=== PATIENT | male | born 1930 | race Caucasian/White ===

== ENCOUNTER 2016-06-25 10:19 | Observation (INO) | payer MEDICARE ==
[2016-06-25] MEDS ORDERED: Lactated Ringers 1,000 ML IV ONE (13:43)
--- NOTE | 2016-06-25 14:15 | XRAY ---
Indication: Acute mental status change. Comparison: June 21, 2016 Portable chest demonstrates stable left base infiltrate/atelectasis with right base clearing. Remaining lungs clear. Heart is not enlarged. No new cardiopulmonary abnormalities.
[2016-06-25 16:41] LABS: Collection Type VOID
[2016-06-25 16:42] LABS: ADD URINE CULTURE? YES (NO); Bacteria MODERATE /HPF (NEGATIVE); COMPLETE URINE MICROSCOPIC? YES; Epithelial Cells FEW /HPF (FEW); Hyaline Casts 0-2 /LPF (0-2); WBC 0-2 /HPF (0-5)
[2016-06-25] MEDS ORDERED: DULCOLAX 5 MG PO PRN (17:19)
[2016-06-25] MEDS ORDERED: TYLENOL 325 MG PO PRN (17:19)
--- NOTE | 2016-06-25 17:32 | PCM.HP ---
History of Present Illness - Chief Complaint Chief Complaint: ACUTE KIDNEY INJURY Date: 06/25/16 History of Present Illness: is a 85 year old male. who suffers from Parkinsonism and Dementia as well as prostate cancer and recurrent falls, who was recently diagnosed with a new stroke and discharged to [facility] from [place]. He was placed on thickened liquid diet due to aspiration. He developed respiratory symptoms and found to have evidence of pneumonia on chest x-ray started on Levaquin but was very fatigued and not eating or drinking really this week. He was more somnolent today not wanting to drink repeat bmp showed hypernatremia and acute kidney injury and he was transferred to [place] for direct admission for hydration. His daughter is his poa and was here she requested hospital stay for rehydration rather then at the assisted. - Review of Systems Constitutional: Other (unable to obtain secondary to mental status. ) Medications & Allergies Home Medications: Home Medication List Aspirin [Aspirin EC] 81 mg PO DAILY 06/03/16 [History Confirmed 06/25/16] Carbidopa/Levodopa [Carbidopa-Levo 25-100 Tab] 1 each PO QID 06/03/16 [History Confirmed 06/25/16] Clopidogrel Bisulfate [Clopidogrel] 75 mg PO DAILY 06/03/16 [History Confirmed 06/25/16] Donepezil HCl 10 mg PO DAILY 06/03/16 [History Confirmed 06/25/16] Escitalopram Oxalate 10 mg PO DAILY 06/03/16 [History Confirmed 06/25/16] Famotidine 40 mg PO HS 06/03/16 [History Confirmed 06/25/16] Memantine HCl [Namenda Xr] 28 mg PO DAILY 06/03/16 [History Confirmed 06/25/16] Metoprolol Succinate 50 mg PO DAILY 06/03/16 [History Confirmed 06/25/16] PANTOPRAZOLE 40 mg Tablet [Protonix 40MG Tablet] 40 mg PO DAILY 06/03/16 [ History Confirmed 06/25/16] Solifenacin Succinate [Vesicare] 10 mg PO DAILY 06/03/16 [History Confirmed ] Tamsulosin HCl 0.4 mg PO HS 06/03/16 [History Confirmed 06/25/16] Valsartan [Diovan] 320 mg PO DAILY 06/03/16 [History Confirmed 06/25/16] Acetaminophen 325 mg [Tylenol 325 mg] 650 mg PO Q4HPRN PRN 06/25/16 [ History Confirmed 06/25/16] Atorvastatin Calcium 40 mg PO HS 06/25/16 [History Confirmed 06/25/16] Bisacodyl 5 mg [Dulcolax 5 mg] 10 mg PO HSPRN PRN 06/25/16 [History Confirmed 06/25/16] Clonidine HCl Tts-1 Patch [Catapres-TTS 1 PATCH] 0.1 mg TOP DAILY [History Confirmed 06/25/16] Levetiracetam 250 MG [Keppra 250 MG] 250 mg PO BID 06/25/16 [History Confirmed 06/25/16] Levofloxacin [Levaquin] 500 mg PO DAILY 06/25/16 [History Confirmed 06/25/16] Mag Hydrox/Al Hydrox/Simeth [Mylanta Maximum Strength Liq] 2 ml PO Q4HPRN PRN [History Confirmed 06/25/16] Magnesium Hydroxide 30 ml [Milk of Magnesia 30 ml] 30 ml PO DAILY PRN PRN 06/25/16 [History Confirmed 06/25/16] Allergies/Adverse Reactions: Allergies Allergy/AdvReac Type Severity Reaction Status Date / Time Penicillins Allergy Verified 06/03/16 22:02 ampicillin AdvReac Mild Vomiting Verified 12/15/15 13:41 - Past Medical History Past Medical History: Yes Neurological History: Alzheimer's Disease, Stroke, Other Cardiac History: Arrhythmia, High Cholesterol, Hypertension Respiratory History: COPD Musculoskelatal History: Arthritis GI Medical History: No Pertinent History History: Other Pyscho-Social History: Depression Male Reproductive Disorders: Prostate Cancer, Prostate Problems Comment: Parkinsons, BPH - Past Surgical History Past Surgical History: Yes Neuro Surgical History: No Pertinent History Cardiac History: No Pertinent History Respiratory Surgery: No Pertinent History GI Surgical History: No Pertinent History Genitourinary Surgical Hx: No Pertinent History Musculskeletal Surgical Hx: Orthopedic Surgery Male Surgical History: No Pertinent History Other Surgical History: back surgery, knee surgery - Social History Smoking Status: Never smoker Exposure to second hand smoke: No Alcohol: None Drug Use: none - Physical Exam Vital Signs: Vital Signs - 24 hr Temp Pulse Resp BP Pulse Ox 06/25/16 16:05 97.7 F 72 20 138/90 93 L 06/25/16 14:09 97.8 F 69 20 135/63 94 L 06/25/16 13:41 97.8 F 69 20 135/63 94 L General Appearance: no apparent distress, other (drowsy falls asleep while talking to his daughter) Neurologic Exam: No oriented x 3 Eye Exam: pale conjunctivae, No scleral icterus Ears, Nose, Throat Exam: dry mucous membranes Neck Exam: non-tender, supple Respiratory Exam: crackles/rales (bibasilar), No rhonchi, No wheezing Cardiovascular Exam: regular rate/rhythm, murmur Gastrointestinal/Abdomen Exam: soft, normal bowel sounds, No tenderness, No distention Extremity Exam: No calf tenderness, No pedal edema Skin Exam: warm, dry, No rash Results - Labs Lab/Micro Results: Lab Results-Last 24 Hours 06/25/16 Range/Units 16:27 Ur Collection Type VOID Urine Color YELLOW (YELLOW) Urine Appearance SLIGHTLY HAZY (CLEAR) Urine pH 6.0 (5-6) Ur Specific [place] 1.025 (1.005-1.025) Urine Protein NEGATIVE (Negative) Urine Glucose (UA) NEGATIVE (NEGATIVE) mg/dL Urine Ketones NEGATIVE (NEGATIVE) Urine Nitrite NEGATIVE (NEGATIVE) Urine Bilirubin NEGATIVE (NEGATIVE) Urine Urobilinogen 1 (0-1) mg/dL Urine WBC (Auto) NEGATIVE (NEGATIVE) Urine RBC (Auto) SMALL (0-5) Shiva/ul Urine Microscopic RBC 10-15 (0-2) /HPF Urine Microscopic WBC 0-2 (0-5) /HPF Ur Epithelial Cells FEW (FEW) /HPF Urine Bacteria MODERATE (NEGATIVE) /HPF Hyaline Casts 0-2 (0-2) /LPF Specimen Received 06/25/16 1631 - Radiology Impressions Radiology Exams & Impressions: Radiology Procedures Category Date Time Status CHEST 1 VIEW (PORTABLE) Routine Exams 06/25/16 13:43 Completed Assessment/Plan (1) Pneumonia Current Visit: Yes Status: Acute Qualifiers: Laterality: left Lung location: lower lobe of lung Assessment & Plan: improving on the levaquin started earlier this week will continue at reduced renal dosing rehydrate gentle with the acute kidney injury his bumex has been held this week continue to hold hold the valsartan as well getting 1 L of LR over 4 horus then 1/2 NS at 100 mL/h encourage po intake monitor repeat labs in am. plan for back to [facility] when labs improving and mental status a little more alert he has severe dementia at baseline but is usually very alert and talkative. Code(s): J18.9 - PNEUMONIA, UNSPECIFIED ORGANISM (2) Acute kidney injury Current Visit: Yes Status: Acute Code(s): N17.9 - ACUTE KIDNEY FAILURE, UNSPECIFIED (3) Dehydration Current Visit: Yes Status: Acute Code(s): E86.0 - DEHYDRATION (4) Parkinson disease Current Visit: Yes Status: Chronic Code(s): G20 - PARKINSON'S DISEASE (5) Dementia Current Visit: Yes Status: Chronic Qualifiers: Dementia type: Parkinson's disease Dementia behavioral disturbance: without behavioral disturbance Qualified Code(s): G20 - Parkinson's disease; F02.80 - Dementia in other diseases classified elsewhere without behavioral disturbance Code(s): F03.90 - UNSPECIFIED DEMENTIA WITHOUT BEHAVIORAL DISTURBANCE (6) Stroke Current Visit: Yes Status: Chronic Code(s): I63.9 - CEREBRAL INFARCTION, UNSPECIFIED (7) Dysphagia Current Visit: Yes Status: Chronic Code(s): R13.10 - DYSPHAGIA, UNSPECIFIED (8) COPD (chronic obstructive pulmonary disease) Current Visit: Yes Status: Chronic (9) Hypertension Current Visit: Yes Status: Acute Code(s): I10 - ESSENTIAL (PRIMARY) HYPERTENSION (10) Hx of prostatic malignancy Current Visit: Yes Status: Chronic Assessment & Plan: on injections last was this week Code(s): Z85.46 - PERSONAL HISTORY OF MALIGNANT NEOPLASM OF PROSTATE
[2016-06-25] MEDS: Dextrose 5% -0.45 NaCl 1000 ML 1,000 ML IV SCH (18:05)
[2016-06-25] MEDS: Aricept 10 MG PO SCH (20:32)
[2016-06-25] MEDS ORDERED: LIPITOR 40MG PO SCH (22:00)
[2016-06-25] MEDS ORDERED: NON-FORMULARY ITEM (Famotidine [Famotidine] 40 MG) PO SCH (22:00)
[2016-06-25] MEDS: Pepcid 20 MG PO SCH (22:37)
[2016-06-25] MEDS: Sinemet 25/100 MG PO SCH (22:37)
[2016-06-25] MEDS: Keppra 250 MG PO SCH (22:37)
[2016-06-25] MEDS: ZOCOR 20MG PO SCH (22:37)
[2016-06-25] MEDS: Flomax 0.4 MG PO SCH (22:37)
[2016-06-26] MEDS: Dextrose 5% -0.45 NaCl 1000 ML 1,000 ML IV SCH ×3 (04:00→23:00)
[2016-06-26 06:28] LABS: Mean Cell Volume 100.9 fl (78-100); Mean Corpuscular Hemoglobin 30.5 pg (26-32); Mean Platelet Volume 11.7 fl (6-9.5); Platelet Count 353 K/mm3 (150-450); Red Blood Count 3.24 M/mm3 (4.1-5.6); Red Cell Distribution Width 13.1 % (11.5-14.0); White Blood Count 6.9 K/mm3 (4.0-10.5)
[2016-06-26 06:29] LABS: ANION GAP 3.7 MEQ/L (5-15); Carbon Dioxide 28.6 mEq/L (21-32)
--- NOTE | 2016-06-26 09:02 | PCM.NOTE ---
Date and Time: 06/26/16 0900 Subjective Assessment: patient with no fever overnight, bun/cr has improved some. he is still very groggy, responds briefly to painful stimulus Objective Exam General Appearance: no apparent distress, lethargy Respiratory Exam: crackles/rales Cardiovascular Exam: regular rate/rhythm, normal heart sounds Gastrointestinal/Abdomen Exam: soft, No tenderness, No mass Extremity Exam: normal inspection, normal range of motion OBJECTIVE DATA Vital Signs: Vital Signs - 24 hr Temp Pulse Resp BP Pulse Ox 06/26/16 08:00 97.8 F 60 18 178/75 95 06/26/16 04:00 98 F 61 17 168/70 94 L 06/26/16 00:00 98 F 56 L 18 171/75 93 L 06/25/16 20:00 97.1 F 57 L 20 172/82 96 06/25/16 16:05 97.7 F 72 20 138/90 93 L 06/25/16 14:09 97.8 F 69 20 135/63 94 L 06/25/16 13:41 97.8 F 69 20 135/63 94 L Pain Assessment - Last Documented Pain Intensity 0 Pain Scale Used 0-10 [facility] Scale,[facility] Intake and Output: Intake & Output 06/23/16 06/24/16 06/25/16 06/26/16 11:59 11:59 11:59 11:59 Intake Total 2536 Output Total 1150 Balance 1386 Weight 80.377 kg Lab Results: Lab Results-Last 24 Hours 06/25/16 06/26/16 06/26/16 Range/Units 16:27 05:56 05:56 WBC 6.9 (4.0-10.5) K/mm3 RBC 3.24 L (4.1-5.6) M/mm3 Hgb 9.9 L (12.5-18.0) gm/dl Hct 32.7 L (42-50) % MCV 100.9 H (78-100) fl MCH 30.5 (26-32) pg MCHC 30.3 L (32-36) g/dl RDW 13.1 (11.5-14.0) % Plt Count 353 (150-450) K/mm3 MPV 11.7 H (6-9.5) fl Sodium (136-145) mEq/L Potassium (3.5-5.1) mEq/L Chloride (98-107) mEq/L Carbon Dioxide (21-32) mEq/L Anion Gap (5-15) MEQ/L BUN (9-20) mg/dL Creatinine (0.55-1.30) mg/dl Estimated GFR ML/MIN Glucose (70-110) MG/DL Hemoglobin A1c 7.8 H (4.5-6.2) Calcium (8.5-10.1) mg/dL Ur Collection Type VOID Urine Color YELLOW (YELLOW) Urine Appearance SLIGHTLY HAZY (CLEAR) Urine pH 6.0 (5-6) Ur Specific [place] 1.025 (1.005-1.025) Urine Protein NEGATIVE (Negative) Urine Glucose (UA) NEGATIVE (NEGATIVE) mg/dL Urine Ketones NEGATIVE (NEGATIVE) Urine Nitrite NEGATIVE (NEGATIVE) Urine Bilirubin NEGATIVE (NEGATIVE) Urine Urobilinogen 1 (0-1) mg/dL Urine WBC (Auto) NEGATIVE (NEGATIVE) Urine RBC (Auto) SMALL (0-5) Shiva/ul Urine Microscopic RBC 10-15 (0-2) /HPF Urine Microscopic WBC 0-2 (0-5) /HPF Ur Epithelial Cells FEW (FEW) /HPF Urine Bacteria MODERATE (NEGATIVE) /HPF Hyaline Casts 0-2 (0-2) /LPF Specimen Received 06/25/16 1631 06/26/16 Range/Units 05:56 WBC (4.0-10.5) K/mm3 RBC (4.1-5.6) M/mm3 Hgb (12.5-18.0) gm/dl Hct (42-50) % MCV (78-100) fl MCH (26-32) pg MCHC (32-36) g/dl RDW (11.5-14.0) % Plt Count (150-450) K/mm3 MPV (6-9.5) fl Sodium 137 (136-145) mEq/L Potassium 4.0 (3.5-5.1) mEq/L Chloride 109 H (98-107) mEq/L Carbon Dioxide 28.6 (21-32) mEq/L Anion Gap 3.7 L (5-15) MEQ/L BUN 28 H (9-20) mg/dL Creatinine 1.45 H (0.55-1.30) mg/dl Estimated GFR 49 ML/MIN Glucose 269 H (70-110) MG/DL Hemoglobin A1c (4.5-6.2) Calcium 8.7 (8.5-10.1) mg/dL Ur Collection Type Urine Color (YELLOW) Urine Appearance (CLEAR) Urine pH (5-6) Ur Specific [place] (1.005-1.025) Urine Protein (Negative) Urine Glucose (UA) (NEGATIVE) mg/dL Urine Ketones (NEGATIVE) Urine Nitrite (NEGATIVE) Urine Bilirubin (NEGATIVE) Urine Urobilinogen (0-1) mg/dL Urine WBC (Auto) (NEGATIVE) Urine RBC (Auto) (0-5) Shiva/ul Urine Microscopic RBC (0-2) /HPF Urine Microscopic WBC (0-5) /HPF Ur Epithelial Cells (FEW) /HPF Urine Bacteria (NEGATIVE) /HPF Hyaline Casts (0-2) /LPF Specimen Received Radiology Exams: Radiology Procedures Category Date Time Status CHEST 1 VIEW (PORTABLE) Routine Exams 06/25/16 13:43 Completed Multi-Disciplinary Progress Notes: Multi-Disciplinary Progress Notes 06/25/16 15:22 Case Management Note by Janki Berumen DISCHARGE PLAN REVIEWED, FROM [facility] PLAN FOR PT TO RETURN TO [facility] ON DISCHARGE. NO ADDNL NEEDS AT PRESENT. WILL CONTINUE TO FOLLOW FOR ALL DC NEEDS. Initialized on 06/25/16 15:22 - END OF NOTE Assessment/Plan (1) Pneumonia Current Visit: Yes Status: Acute Qualifiers: Laterality: left Lung location: lower lobe of lung Assessment & Plan: continue levaquin Code(s): J18.9 - PNEUMONIA, UNSPECIFIED ORGANISM (2) Acute kidney injury Current Visit: Yes Status: Acute Assessment & Plan: improving slightly, will repeat in am, hopefully will become more alert and can return to [facility] soon Code(s): N17.9 - ACUTE KIDNEY FAILURE, UNSPECIFIED (3) Dehydration Current Visit: Yes Status: Acute Code(s): E86.0 - DEHYDRATION
[2016-06-26] MEDS: PLAVIX 75 MG Tablet PO SCH (09:10)
[2016-06-26] MEDS: Lexapro 10 MG PO SCH (09:10)
[2016-06-26] MEDS: Sinemet 25/100 MG PO SCH ×4 (09:10→22:44)
[2016-06-26] MEDS: ECOTRIN 81 MG PO SCH (09:11)
[2016-06-26] MEDS: Toprol Xl 50 MG PO SCH (09:11)
[2016-06-26] MEDS: Protonix 40MG Tablet PO SCH (09:11)
[2016-06-26] MEDS: Keppra 250 MG PO SCH ×2 (09:11→22:44)
[2016-06-26] MEDS: Ditropan 5 MG PO SCH ×2 (09:11→22:43)
[2016-06-26] MEDS: Namenda 5 MG PO SCH ×2 (09:11→22:44)
[2016-06-26] MEDS: Levaquin 500 MG Tablet PO SCH (09:12)
[2016-06-26] MEDS ORDERED: Levaquin 500 MG Tablet PO SCH (10:00)
[2016-06-26] MEDS ORDERED: MEMANTINE HCL 28 MG PO SCH (10:00)
[2016-06-26] MEDS: NovoLOG Insulin SQ PRN ×2 (12:49→17:05)
[2016-06-26] MEDS: Aricept 10 MG PO SCH (20:17)
[2016-06-26] MEDS: Pepcid 20 MG PO SCH (22:43)
[2016-06-26] MEDS: ZOCOR 20MG PO SCH (22:44)
[2016-06-26] MEDS: Flomax 0.4 MG PO SCH (22:44)
[2016-06-27 05:56] LABS: BASOPHIL % 0.1 % (0.0-0.4); Eosinophil % 2.6 % (0.00-5.0); Granulocytes % 67.5 % (36.0-66.0); Mean Cell Volume 99.4 fl (78-100); Mean Corpuscular Hemoglobin 30.6 pg (26-32); Mean Platelet Volume 11.7 fl (6-9.5); Monocytes % 7.8 % (0.0-12.0); Platelet Count 310 K/mm3 (150-450); Red Blood Count 3.33 M/mm3 (4.1-5.6); Red Cell Distribution Width 12.7 % (11.5-14.0); White Blood Count 6.9 K/mm3 (4.0-10.5)
[2016-06-27 06:14] LABS: ALBUMIN 1.9 g/dL (3.4-5.0); ANION GAP 10.3 MEQ/L (5-15); BILIRUBIN,TOTAL 0.3 mg/dL (0.2-1.0); Carbon Dioxide 27.7 mEq/L (21-32); Total Protein 5.8 gm/dL (6.4-8.2)
--- NOTE | 2016-06-27 06:32 | PCM.DS ---
Discharge Summary Date of Admission: 06/25/16 13:31 Admitting Physician: KAYLENE NASCIMENTO Primary Care Provider: KAYLENE NASCIMENTO Allergies Allergies Penicillins Allergy (Verified 06/03/16 22:02) ampicillin Adverse Reaction (Mild, Verified 12/15/15 13:41) Vomiting Hospital Summary - Hospital Course Hospital Course: patient doing much better after hydration, he is alert, confused but this appears to be his baseline. he is cooperative and looks good today - Vitals & Intake/Output Vital Signs: Vital Signs Temperature 98.1 F 06/27/16 04:00 Pulse Rate 53 L 06/27/16 04:00 Respiratory Rate 16 06/27/16 04:00 Blood Pressure 161/77 06/27/16 04:00 O2 Sat by Pulse Oximetry 95 06/27/16 04:00 Intake & Output: Intake & Output 06/24/16 06/25/16 06/26/16 06/27/16 11:59 11:59 11:59 11:59 Intake Total 2536 3231 Output Total 1150 1650 Balance 1386 1581 Weight 80.377 kg - Lab Result Diagrams: 06/27/16 04:30 06/27/16 04:30 Lab Results-Last 24 Hrs: Accuchecks Date 06/27/16 Date 06/26/16 Time 22:00 Time 16:30 Accucheck Value: 151 Accucheck Value: 216 Lab Results-Last 24 Hours 06/26/16 06/26/16 06/26/16 Range/Units 05:56 05:56 05:56 WBC 6.9 (4.0-10.5) K/mm3 RBC 3.24 L (4.1-5.6) M/mm3 Hgb 9.9 L (12.5-18.0) gm/dl Hct 32.7 L (42-50) % MCV 100.9 H (78-100) fl MCH 30.5 (26-32) pg MCHC 30.3 L (32-36) g/dl RDW 13.1 (11.5-14.0) % Plt Count 353 (150-450) K/mm3 MPV 11.7 H (6-9.5) fl Gran % (36.0-66.0) % Lymphocytes % (24.0-44.0) % Monocytes % (0.0-12.0) % Eosinophils % (0.00-5.0) % Basophils % (0.0-0.4) % Basophils # (0-0.4) Sodium 137 (136-145) mEq/L Potassium 4.0 (3.5-5.1) mEq/L Chloride 109 H (98-107) mEq/L Carbon Dioxide 28.6 (21-32) mEq/L Anion Gap 3.7 L (5-15) MEQ/L BUN 28 H (9-20) mg/dL Creatinine 1.45 H (0.55-1.30) mg/dl Estimated GFR 49 ML/MIN Glucose 269 H (70-110) MG/DL Hemoglobin A1c 7.8 H (4.5-6.2) Calcium 8.7 (8.5-10.1) mg/dL Total Bilirubin (0.2-1.0) mg/dL AST (15-37) U/L ALT (12-78) U/L Alkaline Phosphatase (46-116) U/L Serum Total Protein (6.4-8.2) gm/dL Albumin (3.4-5.0) g/dL 06/27/16 06/27/16 Range/Units 04:30 04:30 WBC 6.9 (4.0-10.5) K/mm3 RBC 3.33 L (4.1-5.6) M/mm3 Hgb 10.2 L (12.5-18.0) gm/dl Hct 33.1 L (42-50) % MCV 99.4 (78-100) fl MCH 30.6 (26-32) pg MCHC 30.8 L (32-36) g/dl RDW 12.7 (11.5-14.0) % Plt Count 310 (150-450) K/mm3 MPV 11.7 H (6-9.5) fl Gran % 67.5 H (36.0-66.0) % Lymphocytes % 22.0 L (24.0-44.0) % Monocytes % 7.8 (0.0-12.0) % Eosinophils % 2.6 (0.00-5.0) % Basophils % 0.1 (0.0-0.4) % Basophils # 0.01 (0-0.4) Sodium 143 (136-145) mEq/L Potassium 4.0 (3.5-5.1) mEq/L Chloride 109 H (98-107) mEq/L Carbon Dioxide 27.7 (21-32) mEq/L Anion Gap 10.3 (5-15) MEQ/L BUN 17 (9-20) mg/dL Creatinine 1.23 (0.55-1.30) mg/dl Estimated GFR 59 ML/MIN Glucose 216 H (70-110) MG/DL Hemoglobin A1c (4.5-6.2) Calcium 8.4 L (8.5-10.1) mg/dL Total Bilirubin 0.3 (0.2-1.0) mg/dL AST 35 (15-37) U/L ALT 14 (12-78) U/L Alkaline Phosphatase 83 (46-116) U/L Serum Total Protein 5.8 L (6.4-8.2) gm/dL Albumin 1.9 L (3.4-5.0) g/dL Micro Results-Entire Visit: Microbiology 06/25/16 16:27 Urine Culture - Preliminary Urine, Void NO GROWTH TO DATE Accuchecks Date 06/27/16 Date 06/26/16 Time 22:00 Time 16:30 Accucheck Value: 151 Accucheck Value: 216 - Radiology Exams Ordered Rad Exams-Entire Visit: Radiology Procedures Category Date Time Status CHEST 1 VIEW (PORTABLE) Routine Exams 06/25/16 13:43 Completed - Procedures and Test Procedures and Tests throughout Hospitalization: Therapy Orders & Screens 06/25/16 14:47 ST Screen per Nursing Assess Comment: Protocol Order Physician Instructions: Greater than [address] Admission Screening Reason For Exam: Triggered on Admission Diagnosis: ACUTE KIDNEY INJURY CVA/Dyshpagia/Aphasia: No Cognitive Deficits: No Dehydration/Nutrition Deficit: Yes Reflux: No Oral-Motor Difficulties: No Pneumonia: No Senior Living Resident: Yes Total Points: 10 Discharge Exam General Appearance: no apparent distress, alert Neurologic Exam: No oriented x 3 Skin Exam: normal color, warm, dry Respiratory Exam: normal breath sounds, lungs clear, No respiratory distress Cardiovascular Exam: regular rate/rhythm, normal heart sounds Gastrointestinal/Abdomen Exam: soft, No tenderness, No mass Extremity Exam: normal inspection, normal range of motion Final Diagnosis/Problem List - Final Discharge Diagnosis/Problem (1) Pneumonia Current Visit: Yes Status: Acute Assessment & Plan: continue levaquin 250mg daily x 5 more days (2) Acute kidney injury Current Visit: Yes Status: Acute Assessment & Plan: resolved, bun/cr are normalized (3) Dehydration Current Visit: Yes Status: Acute - Discharge Disposition: DC TO [facility] Condition: Stable Prescriptions: New Levofloxacin [Levaquin 500 MG Tablet] 250 mg PO DAILY #5 tablet Continue Tamsulosin HCl 0.4 mg PO HS Solifenacin Succinate [Vesicare] 10 mg PO DAILY PANTOPRAZOLE 40 mg Tablet [Protonix 40MG Tablet] 40 mg PO DAILY Metoprolol Succinate 50 mg PO DAILY Memantine HCl [Namenda Xr] 28 mg PO DAILY Famotidine 40 mg PO HS Escitalopram Oxalate 10 mg PO DAILY Donepezil HCl 10 mg PO DAILY Clopidogrel Bisulfate [Clopidogrel] 75 mg PO DAILY Carbidopa/Levodopa [Carbidopa-Levo 25-100 Tab] 1 each PO QID Aspirin [Aspirin EC] 81 mg PO DAILY Valsartan [Diovan] 320 mg PO DAILY Magnesium Hydroxide 30 ml [Milk of Magnesia 30 ml] 30 ml PO DAILY PRN PRN PRN Reason: Constipation Bisacodyl 5 mg [Dulcolax 5 mg] 10 mg PO HSPRN PRN PRN Reason: Constipation Clonidine HCl Tts-1 Patch [Catapres-TTS 1 PATCH] 0.1 mg TOP DAILY Acetaminophen 325 mg [Tylenol 325 mg] 650 mg PO Q4HPRN PRN PRN Reason: Pain And/Or Fever Atorvastatin Calcium 40 mg PO HS Levetiracetam 250 MG [Keppra 250 MG] 250 mg PO BID Mag Hydrox/Al Hydrox/Simeth [Mylanta Maximum Strength Liq] 2 ml PO Q4HPRN PRN PRN Reason: Indigestion Discontinued Levofloxacin [Levaquin] 500 mg PO DAILY Follow up with: KAYLENE NASCIMENTO [Primary Care Provider] - 1 Week
[2016-06-27] MEDS: NovoLOG Insulin SQ PRN (07:34)
[2016-06-27 07:54] VITALS: BP 176/78; PULSE 56; O2SAT 91
[2016-06-27] MEDS: Lexapro 10 MG PO SCH (08:07)
[2016-06-27] MEDS: PLAVIX 75 MG Tablet PO SCH (08:07)
[2016-06-27] MEDS: Sinemet 25/100 MG PO SCH (08:07)
[2016-06-27] MEDS: ECOTRIN 81 MG PO SCH (08:07)
[2016-06-27] MEDS: Keppra 250 MG PO SCH (08:40)
[2016-06-27] MEDS: Namenda 5 MG PO SCH (08:40)
[2016-06-27] MEDS: Protonix 40MG Tablet PO SCH (08:40)
[2016-06-27] MEDS: Ditropan 5 MG PO SCH (08:41)
[2016-06-27] MEDS: Toprol Xl 50 MG PO SCH (08:41)
[2016-06-27] MEDS: Levaquin 500 MG Tablet PO SCH (08:41)
[2016-07-02] MEDS ORDERED: Catapres-TTS 1 PATCH TOP SCH (10:00)
== END 2016-06-27 10:00 | disposition home or self-care (01) ==
LOC: MED SURG 13:31
PROVIDERS: ADMIT Family Medicine; ATTEND Family Medicine
DX: J18.9 Pneumonia, unspecified organism (principal); N17.9 Acute kidney failure, unspecified; E86.0 Dehydration; I10 Essential (primary) hypertension; J44.9 Chronic obstructive pulmonary disease, unspecified; G31.83 Neurocognitive disorder with Lewy bodies; G30.9 Alzheimer's disease, unspecified; F02.80 Dementia in other diseases classified elsewhere, unspecified severity, without behavioral disturbance, psychotic disturbance, mood disturbance, and anxiety; R29.6 Repeated falls; F32.9 Major depressive disorder, single episode, unspecified; Z79.899 Other long term (current) drug therapy; Z85.46 Personal history of malignant neoplasm of prostate; Z86.73 Personal history of transient ischemic attack (TIA), and cerebral infarction without residual deficits
CPT/HCPCS: 36415; 71010; 80048; 80053; 81000; 82962; 83036; 85025; 85027; 87086; G0378

== ENCOUNTER 2016-09-04 16:22 | Emergency (ER) | payer MEDICARE ==
[2016-09-04 16:28] VITALS: O2SAT 94
--- NOTE | 2016-09-04 16:42 | ERPHSYRPT ---
- History of Present Illness Time Seen by Provider: 09/04/16 16:36 Source: EMS Exam Limitations: other (dementia) Patient Subjective Stated Complaint: PT GERMAINE TO ED PER EMS FROM [facility]- REPORTS PT FELL OUT OF CHAIR FACE FIRST-REPORTS BLOOD TO LEFT NOSTRIL-PT NONVERBAL ET UNABLE TO ANSWER QUESTIONS Triage Nursing Assessment: PT PALE WARM ET DRY-BLEEDING CONTROL PARTS PULLER-RESP EASY ET NONLABORED Physician History: The patient is an 86-year-old male brought in by ambulance from retirement where it was reported that he stood up from his chair and fell on his face. The patient is nonverbal is his baseline and has severe dementia. There was reportedly no loss of consciousness. His past medical history is significant for hypertension, seizure, dementia, Parkinson's, high cholesterol, and possible stroke. Occurred: just prior to arrival Reason for Fall: unknown, fell from standing pos Injuries/Pain Location: face Loss of Consciousness: no loss of consciousness Quality: other (pt unable to verbalize) Severity of Pain-Max: none Severity of Pain-Current: none Modifying Factors: Improves With: nothing Associated Symptoms (Fall): denies symptoms Allergies/Adverse Reactions: Penicillins Allergy (Verified 09/04/16 16:28) ampicillin Adverse Reaction (Mild, Verified 09/04/16 16:28) Vomiting Home Medications: Carbidopa/Levodopa [Carbidopa-Levo 25-100 Tab] 1 each PO QID 06/03/16 [History] Clopidogrel Bisulfate [Clopidogrel] 75 mg PO DAILY 06/03/16 [History] Escitalopram Oxalate 10 mg PO DAILY 06/03/16 [History] Famotidine 40 mg PO HS 06/03/16 [History] Memantine HCl [Namenda Xr] 28 mg PO DAILY 06/03/16 [History] Metoprolol Succinate 50 mg PO DAILY 06/03/16 [History] PANTOPRAZOLE 40 mg Tablet [Protonix 40MG Tablet] 40 mg PO DAILY 06/03/16 [ History] Solifenacin Succinate [Vesicare] 10 mg PO DAILY 06/03/16 [History] Valsartan [Diovan] 320 mg PO DAILY 06/03/16 [History] Acetaminophen 325 mg [Tylenol 325 mg] 650 mg PO Q4HPRN PRN 06/25/16 [ History] Atorvastatin Calcium 40 mg PO HS 06/25/16 [History] Bisacodyl 5 mg [Dulcolax 5 mg] 10 mg PO HSPRN PRN 06/25/16 [History] Clonidine HCl Tts-1 Patch [Catapres-TTS 1 PATCH] 0.1 mg TOP DAILY [History] Levetiracetam 250 MG [Keppra 250 MG] 250 mg PO BID 06/25/16 [History] Mag Hydrox/Al Hydrox/Simeth [Mylanta Maximum Strength Liq] 2 ml PO Q4HPRN PRN [History] Magnesium Hydroxide 30 ml [Milk of Magnesia 30 ml] 30 ml PO DAILY PRN PRN 06/25/16 [History] Hx Tetanus, Diphtheria Vaccination/Date Given: No Hx Influenza Vaccination/Date Given: Yes Hx Pneumococcal Vaccination/Date Given: No (unkown) Immunizations Up to Date: Yes - Review of Systems Constitutional: No Fever, No Chills Eyes: No Symptoms Ears, Nose, & Throat: No Symptoms Respiratory: No Cough, No Dyspnea Cardiac: No Chest Pain, No Edema, No Syncope Abdominal/Gastrointestinal: No Abdominal Pain, No Nausea, No Vomiting, No Diarrhea Genitourinary Symptoms: No Dysuria Musculoskeletal: Fall, No Back Pain, No Neck Pain Skin: No Symptoms, No Rash Neurological: No Dizziness, No Focal Weakness, No Sensory Changes Psychological: No Symptoms Endocrine: No Symptoms Hematologic/Lymphatic: No Symptoms Immunological/Allergic: No Symptoms All Other Systems: Reviewed and Negative - Past Medical History Pertinent Past Medical History: Yes Neurological History: Alzheimer's Disease, Stroke, Other Cardiac History: Arrhythmia, High Cholesterol, Hypertension Respiratory History: COPD Musculoskeletal History: Arthritis GI Medical History: No Pertinent History History: Other Psycho-Social History: Depression Male Reproductive Disorders: Prostate Cancer, Prostate Problems Other Medical History: Parkinsons, BPH - Past Surgical History Past Surgical History: Yes Neuro Surgical History: No Pertinent History Cardiac: No Pertinent History Respiratory: No Pertinent History Gastrointestinal: No Pertinent History Genitourinary: No Pertinent History Musculoskeletal: Orthopedic Surgery Male Surgical History: No Pertinent History Other Surgical History: back surgery, knee surgery - Social History Smoking Status: Never smoker Exposure to second hand smoke: No Drug Use: none Patient Lives Alone: No - Nursing Vital Signs Nursing Vital Signs: Initial Vital Signs Pulse Rate 47 Respiratory Rate 20 Blood Pressure [Right Arm] 195/100 Pain Intensity 0 - Adalid Coma Score Best Eye Response (Adalid): (4) open spontaneously Best Verbal Response (Brimson): (2) incomprehsible sounds - Physical Exam General Appearance: no apparent distress, alert Head Injury: contusions (forehead) Eye Exam: PERRL/EOMI ENT Exam: evidence of ENT injury, clotted nasal blood (left nares) Neck Exam: c-collar in place Respiratory/Chest Exam: normal breath sounds, No chest tenderness, No respiratory distress Cardiovascular Exam: bradycardia Gastrointestinal Exam: soft, No tenderness, No distention, No guarding, No ecchymosis Rectal Exam: not done Back Exam: normal inspection, No vertebral tenderness Extremity Exam: normal inspection, normal range of motion, pelvis stable, No deformities Neurologic Exam: other (severe dementia and pt unable to follow commands or verbalize), No motor deficits SpO2: 94 Oxygen Delivery: Room Air - Course EKG Interpreted by Me: RATE, Sinus Santiago, NORMAL AXIS, NORMAL ST-T - CT Exams Cervical Spine CT Interpretation: Tele-radiologist Report, DJD, No Fracture (per Dr Melendez) Head CT Interpretation: Tele-radiologist Report, No/Intracranial Hemorrhag, Other ( fore head hematoma per Dr Melendez) Other CT Interpretation: Tele-radiologist Report (of facial bone CT), Fracture (tiny nasal bone fx per Dr Melendez.) Ordered Tests: Active Orders 24 hr Category Date Time Status Cervical Collar Application STAT Care 09/04/16 16:48 Active EKG-ER Only STAT Care 09/04/16 16:52 Active CERVICAL SPINE WO CONTRAST [CT] Stat Exams 09/04/16 16:49 Taken FACIAL BONES WO CONTRAST [CT] Stat Exams 09/04/16 16:50 Taken HEAD WITHOUT CONTRAST [CT] Stat Exams 09/04/16 16:49 Taken - Departure Time of Disposition: 17:46 Departure Disposition: Home Clinical Impression: Fall, Facial contusion, Nasal bone fracture Condition: Stable Critical Care Time: No Additional Instructions: Tylenol 1000 mg every 8 hrs as needed.
[2016-09-04 18:01] VITALS: BP 178/76; PULSE 44
--- NOTE | 2016-09-04 21:02 | XRAY ---
Indication: Status post fall. Nonverbal. Multiple contiguous axial images obtained through head without contrast. Comparison: June 03, 2016. Age-appropriate global atrophy, moderate periventricular degenerative micro-ischemia bilaterally, and left thalamic remote infarcts. No acute intracranial hemorrhage, abnormal extra-axial fluid collection, or mass effect. Fourth ventricle is midline without hydrocephalus. Bony calvarium intact. New small left forehead scalp hematoma and minimally depressed nasal bone fracture. Visualized paranasal sinuses and mastoid air cells are pneumatized and clear. Impression: Left forehead scalp hematoma and nasal bone fracture. Otherwise stable nonacute senile brain with small old infarcts. CT DI 51.77
--- NOTE | 2016-09-04 21:04 | XRAY ---
Indication: Status post fall. Nonverbal. Multiple contiguous axial images obtained through the cervical spine. Sagittal and coronal reformatted images obtained. Comparison: June 03, 2016. Stable osteopenia. Axial images again negative for acute fracture, suspicious bony lesions, or spinal canal stenosis. Stable multilevel degenerative endplate spurring and bilateral facet arthropathy, greatest at the C5-C7 levels. Sagittal and coronal reformatted images again demonstrate normal alignment with multilevel disc space narrowing greatest at the C6-C7 level where there is also minimal 1-2 mm anterolisthesis unchanged. Negative for acute compression fracture, subluxation, or jumped facet. Normal- appearing craniocervical junction. Visualized noncontrasted soft tissues again demonstrates scattered bilateral carotid calcifications. Lung apices unremarkable. CT head reported separately. Impression: Again negative for acute fracture. Stable osteopenia and multilevel degenerative changes as detailed. CT DI 108.00
--- NOTE | 2016-09-04 21:08 | XRAY ---
Indication: Facial injury following fall. Nonverbal. Multiple contiguous axial images obtained through the facial bones. Sagittal and coronal reformatted images obtained. Comparison: None Patient is edentulous. Small scalp hematoma of the forehead. Tiny minimally depressed midline nasal bone fracture with adjacent soft tissue swelling. No other acute fracture, suspicious bony lesions, or radiopaque foreign body. Orbits including roof, lambert, and floor intact. Mild nasal septal deviation to the right. Partial opacification of the nasal passages presumably blood. Paranasal sinuses are pneumatized and clear. Incidental bilateral TMJ degenerative changes. CT head and CT cervical spine reported separately. Impression: 1. Tiny minimally depressed nasal bone fracture. 2. Small scalp hematoma of the forehead. 3. Incidental bilateral TMJ degenerative changes. CTDI 59.47
== END 2016-09-04 18:44 ==
LOC: ED 16:22
DX: S00.83XA Contusion of other part of head, initial encounter (principal); S02.2XXA Fracture of nasal bones, initial encounter for closed fracture; W07.XXXA Fall from chair, initial encounter; Y92.129 Unspecified place in nursing home as the place of occurrence of the external cause; E78.00 Pure hypercholesterolemia, unspecified; I10 Essential (primary) hypertension; Z79.899 Other long term (current) drug therapy
CPT/HCPCS: 70450; 70486; 72125; 93005; 99283; 99284; L0120

== ENCOUNTER 2016-11-29 21:50 | Emergency (ER) | payer MEDICARE ==
[2016-11-29] MEDS ORDERED: Sodium Chloride 0.9% 1000 ML 1,000 ML IV STA (22:29)
--- NOTE | 2016-11-29 22:34 | ERPHSYRPT ---
- History of Present Illness Time Seen by Provider: 11/29/16 22:11 Source: patient, other (N.N.) Exam Limitations: no limitations Patient Subjective Stated Complaint: PT WAS FOUND WITH SWELLING AND REDUCED USE OF THE LEFT HAND BY EVENING STAFF AT [facility], WHERE PT RESIDES - PT IS KNOWN TO BE BED-FAST AND WAS FOUND SUCH AT THAT TIME - PT REPORTED THAT IT HURT - UNKNOWN CAUSE OF INJURY Triage Nursing Assessment: LIFTED TO CART PER EMS PERSONNEL - MOVES ALL EXTREMITIES WITH SOME RIGIDITY PER [facility]. ALERT/PLEASANTLY CONFUSED, PER DEMENTIA - PUPILS 2MM, REACTIVE. RESPS EASY - NON-LABORED. SKIN PWD - SWELLING ET ECCHYMOSIS OF THE LEFT LATERAL HAND + BOUNDING PULSE - NO DEFORMITY NOTED Physician History: PT WAS FOUND TONIGHT WITH SWELLING AND BRUISING OF THE LEFT HAND - NO KNOWN INJURY. PT HAS DEMENTIA. PT DENIES ANY OTHER PAIN. Allergies/Adverse Reactions: Penicillins Allergy (Verified 11/29/16 21:54) ampicillin Adverse Reaction (Mild, Verified 11/29/16 21:54) Vomiting Home Medications: Carbidopa/Levodopa [Carbidopa-Levo 25-100 Tab] 1 each PO QID 06/03/16 [History] Clopidogrel Bisulfate [Clopidogrel] 75 mg PO DAILY 06/03/16 [History] Escitalopram Oxalate 10 mg PO DAILY 06/03/16 [History] Famotidine 40 mg PO HS 06/03/16 [History] Memantine HCl [Namenda Xr] 28 mg PO DAILY 06/03/16 [History] Metoprolol Succinate 50 mg PO DAILY 06/03/16 [History] PANTOPRAZOLE 40 mg Tablet [Protonix 40MG Tablet] 40 mg PO DAILY 06/03/16 [ History] Solifenacin Succinate [Vesicare] 10 mg PO DAILY 06/03/16 [History] Valsartan [Diovan] 320 mg PO DAILY 06/03/16 [History] Acetaminophen 325 mg [Tylenol 325 mg] 650 mg PO Q4HPRN PRN 06/25/16 [ History] Atorvastatin Calcium 40 mg PO HS 06/25/16 [History] Bisacodyl 5 mg [Dulcolax 5 mg] 10 mg PO HSPRN PRN 06/25/16 [History] Clonidine HCl Tts-1 Patch [Catapres-TTS 1 PATCH] 0.1 mg TOP DAILY [History] Levetiracetam 250 MG [Keppra 250 MG] 250 mg PO BID 06/25/16 [History] Mag Hydrox/Al Hydrox/Simeth [Mylanta Maximum Strength Liq] 2 ml PO Q4HPRN PRN [History] Magnesium Hydroxide 30 ml [Milk of Magnesia 30 ml] 30 ml PO DAILY PRN PRN 06/25/16 [History] Hx Tetanus, Diphtheria Vaccination/Date Given: No Hx Influenza Vaccination/Date Given: Yes Hx Pneumococcal Vaccination/Date Given: No (unkown) - Review of Systems All Other Systems: Unable due to dementia - Past Medical History Pertinent Past Medical History: Yes Neurological History: Alzheimer's Disease, Stroke, Other Cardiac History: Arrhythmia, High Cholesterol, Hypertension Respiratory History: COPD Musculoskeletal History: Arthritis GI Medical History: No Pertinent History History: Other Psycho-Social History: Depression Male Reproductive Disorders: Prostate Cancer, Prostate Problems Other Medical History: Parkinsons, BPH - Past Surgical History Past Surgical History: Yes Neuro Surgical History: No Pertinent History Cardiac: No Pertinent History Respiratory: No Pertinent History Gastrointestinal: No Pertinent History Genitourinary: No Pertinent History Musculoskeletal: Orthopedic Surgery Male Surgical History: No Pertinent History Other Surgical History: back surgery, knee surgery - Social History Smoking Status: Unknown if ever smoked Exposure to second hand smoke: No Drug Use: none Patient Lives Alone: No - Nursing Vital Signs Nursing Vital Signs: Initial Vital Signs Temperature 97.9 F Temperature Source Axillary Pulse Rate 78 Respiratory Rate 16 Blood Pressure [] 188/98 Pain Intensity 0 - Physical Exam General Appearance: alert Eye Exam: PERRL/EOMI Ears, Nose, Throat Exam: dry mucous membranes Neck Exam: normal inspection Respiratory Exam: lungs clear Cardiovascular Exam: normal heart sounds Gastrointestinal/Abdomen Exam: soft, normal bowel sounds Back Exam: normal inspection Extremity Exam: other (LEFT HAND HAS MILD LATERAL BRUISING, TENDERNESS AND EDEMA WITH LIMITED ROM OF THE LEFT SMALL FINGER.) Neurologic Exam: alert, cooperative Skin Exam: warm, dry SpO2 Interpretation: normal SpO2: 100 Oxygen Delivery: Room Air Procedures - Splinting Location of Splint: Left, Hand (LEFT ULNAR GUTTER SPLINT) Type of Splint: Other (LEFT ULNAR GUTTER SPLINT) Splint Applied By: ED Nurse Pre-Proc Neuro Vasc Exam: normal Post-Proc Neuro Vasc Exam: neurovascular intact - Course Nursing assessment & vital signs reviewed: Yes - Radiology Exams Left Hand X-ray Interpretation: Interpreted by me (PROXIMAL PHALYNX FRACTURE OF THE LEFT SMALL FINGER.) Ordered Tests: Active Orders 24 hr Category Date Time Status IV Insertion STAT Care 11/29/16 22:29 Active Splint STAT Care 11/30/16 00:29 Active cath [Cath for Residual-In & Out] STAT Care 11/29/16 23:06 Active HAND (MINIMUM 3 VIEWS) Stat Exams 11/29/16 22:28 Taken BMP Stat Lab 11/29/16 23:00 Completed CBC W DIFF Stat Lab 11/29/16 23:00 Completed CULTURE,URINE Stat Lab 11/29/16 22:29 Received CULTURE,URINE Stat Lab 11/30/16 00:28 Ordered UA W/ MICROSCOPIC Stat Lab 11/29/16 22:29 Completed Medication Summary Discontinued Medications Generic Name Dose Route Start Last Admin Trade Name Freq PRN Reason Stop Dose Admin Sodium Chloride 1,000 mls @ 999 mls/hr 11/29/16 22:29 11/29/16 23:06 Sodium Chloride 0.9% 1000 Ml IV 11/29/16 23:29 999 mls/hr .Q1H1M STA Administration Sodium Chloride Confirm 11/29/16 23:00 Sodium Chloride 0.9% 1000 Ml Administered 11/29/16 23:01 Dose 1,000 mls @ ud .ROUTE .STK-MED ONE Lab/Rad Data: Laboratory Result Diagrams 11/29/16 23:00 11/29/16 23:00 Laboratory Results 11/29/16 11/29/16 11/29/16 Range/Units 23:00 23:00 22:29 WBC 5.6 (4.0-10.5) K/mm3 RBC 3.80 L (4.1-5.6) M/mm3 Hgb 12.1 L (12.5-18.0) gm/dl Hct 35.8 L (42-50) % MCV 94.2 (78-100) fl MCH 31.8 (26-32) pg MCHC 33.8 (32-36) g/dl RDW 12.8 (11.5-14.0) % Plt Count 120 L (150-450) K/mm3 MPV 12.2 H (6-9.5) fl Gran % 51.7 (36.0-66.0) % Lymphocytes % 32.1 (24.0-44.0) % Monocytes % 10.8 (0.0-12.0) % Eosinophils % 5.2 H (0.00-5.0) % Basophils % 0.2 (0.0-0.4) % Basophils # 0.01 (0-0.4) Sodium 144 (136-145) mEq/L Potassium 4.1 (3.5-5.1) mEq/L Chloride 108 H (98-107) mEq/L Carbon Dioxide 23.4 (21-32) mEq/L Anion Gap 16.3 H (5-15) MEQ/L BUN 16 (9-20) mg/dL Creatinine 0.98 (0.55-1.30) mg/dl Estimated GFR > 60 ML/MIN Glucose 95 (70-110) MG/DL Calcium 9.5 (8.5-10.1) mg/dL Ur Collection Type CATH Urine Color YELLOW (YELLOW) Urine Appearance HAZY (CLEAR) Urine pH 6.0 (5-6) Ur Specific [place] 1.025 (1.005-1.025) Urine Protein NEGATIVE (Negative) Urine Ketones NEGATIVE (NEGATIVE) Urine Blood 50 (0-5) Shiva/ul Urine Nitrite NEGATIVE (NEGATIVE) Urine Bilirubin NEGATIVE (NEGATIVE) Urine Urobilinogen NORMAL (0-1) mg/dL Ur Leukocyte Esterase TRACE (NEGATIVE) Urine Microscopic RBC 10-15 (0-2) /HPF Urine Microscopic WBC 2-5 (0-5) /HPF Ur Epithelial Cells RARE (FEW) /HPF Urine Bacteria FEW (NEGATIVE) /HPF Urine Glucose NEGATIVE (NEGATIVE) mg/dL Specimen Received [id number] - Departure Time of Disposition: 00:42 Departure Disposition: Home Clinical Impression: FRACTURE OF PROXIMAL PHALYNX L SMALL FINGER, UTI, DEMENTIA, HTN, COPD, ARTHRITIS Condition: Stable Critical Care Time: No Instructions: Finger Fracture, Urinary Tract Infection (UTI) Additional Instructions: FOLLOW UP WITH PRIVATE DOCTOR TOMORROW. CALL DR GRANADOS ([phone]) THIS AM FOR AN APPOINTMENT FOR LEFT SMALL FINGER FRACTURE. Prescriptions: Acetaminophen [Tylenol] 650 mg PO Q4H PRN PRN #30 tablet PRN Reason: Pain Nitrofurantoin Macro 100 mg [Macrobid 100MG Capsule] 100 mg PO BID #20 capsule
[2016-11-29] MEDS ORDERED: Sodium Chloride 0.9% 1000 ML 1,000 ML ONE (23:00)
[2016-11-29 23:37] LABS: ANION GAP 16.3 MEQ/L (5-15); BLOOD UREA NITROGEN 16 mg/dL (9-20); CHLORIDE 108 mEq/L (98-107); Carbon Dioxide 23.4 mEq/L (21-32); Glucose 95 MG/DL (70-110); Potassium 4.1 mEq/L (3.5-5.1); SODIUM 144 mEq/L (136-145)
[2016-11-29 23:52] LABS: Bilirubin NEGATIVE (NEGATIVE); Blood 50 Ery/ul (0-5); COMPLETE URINE MICROSCOPIC? YES; Collection Type CATH; Glucose NEGATIVE (NEGATIVE); Leukocyte Esterase TRACE (NEGATIVE)
[2016-11-29 23:53] LABS: ADD URINE CULTURE? YES (NO); Bacteria FEW /HPF (NEGATIVE); Epithelial Cells RARE /HPF (FEW)
[2016-11-30 00:16] LABS: BASOPHIL % 0.2 % (0.0-0.4); Eosinophil % 5.2 % (0.00-5.0); Granulocytes % 51.7 % (36.0-66.0); Lymphocytes % 32.1 % (24.0-44.0); Mean Cell Volume 94.2 fl (78-100); Mean Corpuscular Hemoglobin 31.8 pg (26-32); Mean Platelet Volume 12.2 fl (6-9.5); Monocytes % 10.8 % (0.0-12.0); Platelet Count 120 K/mm3 (150-450); Red Cell Distribution Width 12.8 % (11.5-14.0); White Blood Count 5.6 K/mm3 (4.0-10.5)
[2016-11-30] MEDS ORDERED: ROCEPHIN 1 Gm-D5w 50 ml Bag** 1 G/50 ML IVPB IV STA (00:29)
[2016-11-30] MEDS ORDERED: ROCEPHIN 1 Gm-D5w 50 ml Bag** 1 G/50 ML IVPB IV ONE (00:41)
[2016-11-30 00:51] VITALS: BP 188/80; PULSE 79; O2SAT 99
--- NOTE | 2016-11-30 08:46 | XRAY ---
Indication: Pain and bruising. No known injury. Comparison: December 15, 2015. 3 views of the left hand now demonstrates nondisplaced fracture involving the fifth proximal phalanx with soft tissue swelling. Stable osteopenia, degenerative changes, third phalanx soft tissue foreign body, and distal forearm vascular calcifications.
== END 2016-11-30 01:03 ==
LOC: ED 21:50
DX: S62.617A Displaced fracture of proximal phalanx of left little finger, initial encounter for closed fracture (principal); N39.0 Urinary tract infection, site not specified; F03.90 Unspecified dementia, unspecified severity, without behavioral disturbance, psychotic disturbance, mood disturbance, and anxiety; I10 Essential (primary) hypertension; J44.9 Chronic obstructive pulmonary disease, unspecified; M19.90 Unspecified osteoarthritis, unspecified site; Z79.899 Other long term (current) drug therapy; E78.00 Pure hypercholesterolemia, unspecified
CPT/HCPCS: 36000; 36415; 51701; 73130; 80048; 81000; 85025; 87086; 96360; 96365; 99284; 99285; J0696

== ENCOUNTER 2016-12-06 17:19 | Emergency (ER) | payer MEDICARE ==
[2016-12-06] MEDS ORDERED: Sodium Chloride 0.9% 1000 ML 1,000 ML IV SCH (17:30)
--- NOTE | 2016-12-06 17:34 | ERPHSYRPT ---
- History of Present Illness Time Seen by Provider: 12/06/16 17:24 Source: EMS, fdc records Patient Subjective Stated Complaint: PT BROUGHT IN FROM [facility] VIA AMBULANCE FOR REDUCED MENTAL STATUS,CT STATES THAT HE HAS NOT EAT OR DRANK TODAY. PT IS NORMALLY CONFUSED. Triage Nursing Assessment: PT ARRIVED WITH DECREASE IN MENTAL STATUS, AROUSES TO PAINFUL STIMULI ONLY, RESP EASY, SKIN W/D PALE. HAS OCL CAST TO LEFT ARM FOR FRACTURE TO LEFT THUMB. Physician History: CC: altered mental status Hx: 86 y/o fdc pt with hx of dementia, parkinsons, and stroke. He is not eating or drinking today and very lethargic. No fever. Pt unable to give hx. SCO only per POST. No injury or fall. No vomiting or diarrhea. Allergies/Adverse Reactions: Penicillins Allergy (Verified 12/06/16 17:29) ampicillin Adverse Reaction (Mild, Verified 12/06/16 17:29) Vomiting Home Medications: Carbidopa/Levodopa [Carbidopa-Levo 25-100 Tab] 1 each PO QID 06/03/16 [History] Clopidogrel Bisulfate [Clopidogrel] 75 mg PO DAILY 06/03/16 [History] Escitalopram Oxalate 10 mg PO DAILY 06/03/16 [History] Famotidine 40 mg PO HS 06/03/16 [History] Memantine HCl [Namenda Xr] 28 mg PO DAILY 06/03/16 [History] Metoprolol Succinate 50 mg PO DAILY 06/03/16 [History] PANTOPRAZOLE 40 mg Tablet [Protonix 40MG Tablet] 40 mg PO DAILY 06/03/16 [ History] Solifenacin Succinate [Vesicare] 10 mg PO DAILY 06/03/16 [History] Valsartan [Diovan] 320 mg PO DAILY 06/03/16 [History] Acetaminophen 325 mg [Tylenol 325 mg] 650 mg PO Q4HPRN PRN 06/25/16 [ History] Atorvastatin Calcium 40 mg PO HS 06/25/16 [History] Bisacodyl 5 mg [Dulcolax 5 mg] 10 mg PO HSPRN PRN 06/25/16 [History] Clonidine HCl Tts-1 Patch [Catapres-TTS 1 PATCH] 0.1 mg TOP DAILY [History] Levetiracetam 250 MG [Keppra 250 MG] 250 mg PO BID 06/25/16 [History] Mag Hydrox/Al Hydrox/Simeth [Mylanta Maximum Strength Liq] 2 ml PO Q4HPRN PRN [History] Magnesium Hydroxide 30 ml [Milk of Magnesia 30 ml] 30 ml PO DAILY PRN PRN 06/25/16 [History] Hx Tetanus, Diphtheria Vaccination/Date Given: No Hx Influenza Vaccination/Date Given: Yes Hx Pneumococcal Vaccination/Date Given: Yes - Review of Systems Constitutional: No Fever Respiratory: No Dyspnea Abdominal/Gastrointestinal: No Vomiting, No Diarrhea All Other Systems: Unable due to condition, Unable due to dementia - Past Medical History Pertinent Past Medical History: Yes Neurological History: Alzheimer's Disease, Stroke, Other Cardiac History: Arrhythmia, High Cholesterol, Hypertension Respiratory History: COPD Musculoskeletal History: Arthritis GI Medical History: No Pertinent History History: Other Psycho-Social History: Depression Male Reproductive Disorders: Prostate Cancer, Prostate Problems Other Medical History: Parkinsons, BPH - Past Surgical History Past Surgical History: Yes Neuro Surgical History: No Pertinent History Cardiac: No Pertinent History Respiratory: No Pertinent History Gastrointestinal: No Pertinent History Genitourinary: No Pertinent History Musculoskeletal: Orthopedic Surgery Male Surgical History: No Pertinent History Other Surgical History: back surgery, knee surgery - Social History Smoking Status: Unknown if ever smoked Exposure to second hand smoke: No Drug Use: none Patient Lives Alone: No (MMM CT) - Nursing Vital Signs Nursing Vital Signs: Initial Vital Signs Temperature 98.5 F Temperature Source Oral Pulse Rate 76 Respiratory Rate 16 Blood Pressure [] 159/67 Pain Intensity 0 - Physical Exam General Appearance: alert, other (more alert after alonso. Does not speak.) Eye Exam: other (PERRL) Ears, Nose, Throat Exam: dry mucous membranes Neck Exam: supple Respiratory Exam: diminished breath sounds Cardiovascular Exam: regular rate/rhythm Gastrointestinal/Abdomen Exam: soft, No tenderness, No distention Extremity Exam: pedal edema Neurologic Exam: alert, other (does not follow commands, nonverbal) Skin Exam: warm, dry SpO2 Interpretation: normal SpO2: 97 Oxygen Delivery: Room Air - Course Nursing assessment & vital signs reviewed: Yes - Radiology Exams cxr X-ray Interpretation: Reviewed by me (JUANCHO) Ordered Tests: Active Orders 24 hr Category Date Time Status Catheter-[place] Alonso STAT Care 12/06/16 17:27 Active EKG-ER Only STAT Care 12/06/16 17:27 Active IV Insertion STAT Care 12/06/16 17:27 Active CHEST 1 VIEW (PORTABLE) Stat Exams 12/06/16 17:28 Taken HEAD WITHOUT CONTRAST [CT] Stat Exams 12/06/16 17:28 Taken CBC W DIFF Stat Lab 12/06/16 17:39 Completed CMP Stat Lab 12/06/16 17:39 Completed CULTURE,URINE Stat Lab 12/06/16 17:39 Received Lactic Acid Stat Lab 12/06/16 17:43 Completed TROPONIN Stat Lab 12/06/16 17:39 Completed UA W/ MICROSCOPIC Stat Lab 12/06/16 17:39 Completed Medication Summary Generic Name Dose Route Start Last Admin Trade Name Freq PRN Reason Stop Dose Admin Sodium Chloride 1,000 mls @ 100 mls/hr 12/06/16 17:30 12/06/16 17:40 Sodium Chloride 0.9% 1000 Ml IV 01/05/17 17:29 100 mls/hr .Q10H PHAN Administration Lab/Rad Data: Laboratory Result Diagrams 12/06/16 17:39 12/06/16 17:39 Laboratory Results 12/06/16 12/06/16 12/06/16 Range/Units 17:43 17:39 17:39 WBC (4.0-10.5) K/mm3 RBC (4.1-5.6) M/mm3 Hgb (12.5-18.0) gm/dl Hct (42-50) % MCV (78-100) fl MCH (26-32) pg MCHC (32-36) g/dl RDW (11.5-14.0) % Plt Count (150-450) K/mm3 MPV (6-9.5) fl Gran % (36.0-66.0) % Lymphocytes % (24.0-44.0) % Monocytes % (0.0-12.0) % Eosinophils % (0.00-5.0) % Basophils % (0.0-0.4) % Basophils # (0-0.4) Sodium 149 H (136-145) mEq/L Potassium 3.7 (3.5-5.1) mEq/L Chloride 112 H (98-107) mEq/L Carbon Dioxide 26.6 (21-32) mEq/L Anion Gap 14.0 (5-15) MEQ/L BUN 15 (9-20) mg/dL Creatinine 0.96 (0.55-1.30) mg/dl Estimated GFR > 60 ML/MIN Glucose 85 (70-110) MG/DL Lactic Acid 0.8 (0.4-2.0) Calcium 9.6 (8.5-10.1) mg/dL Total Bilirubin 0.50 (0.2-1.0) mg/dL AST 21 (15-37) U/L ALT 14 (12-78) U/L Alkaline Phosphatase 88 (46-116) U/L Troponin I < 0.017 (0.000-0.056) ng/ml Serum Total Protein 6.8 (6.4-8.2) gm/dL Albumin 3.3 L (3.4-5.0) g/dL Ur Collection Type CATH Urine Color DARK YELLOW (YELLOW) Urine Appearance CLEAR (CLEAR) Urine pH 5.0 (5-6) Ur Specific [place] 1.030 (1.005-1.025) Urine Protein NEGATIVE (Negative) Urine Ketones NEGATIVE (NEGATIVE) Urine Blood 250 (0-5) Shiva/ul Urine Nitrite NEGATIVE (NEGATIVE) Urine Bilirubin NEGATIVE (NEGATIVE) Urine Urobilinogen NORMAL (0-1) mg/dL Ur Leukocyte Esterase 1+ (NEGATIVE) Urine Microscopic RBC 5-10 (0-2) /HPF Urine Microscopic WBC 2-5 (0-5) /HPF Urine Bacteria RARE (NEGATIVE) /HPF Urine Glucose NEGATIVE (NEGATIVE) mg/dL Specimen Received [id number] 12/06/16 Range/Units 17:39 WBC 4.5 (4.0-10.5) K/mm3 RBC 4.21 (4.1-5.6) M/mm3 Hgb 13.4 (12.5-18.0) gm/dl Hct 40.0 L (42-50) % MCV 95.0 (78-100) fl MCH 31.8 (26-32) pg MCHC 33.5 (32-36) g/dl RDW 13.0 (11.5-14.0) % Plt Count 123 L (150-450) K/mm3 MPV 12.0 H (6-9.5) fl Gran % 52.4 (36.0-66.0) % Lymphocytes % 31.6 (24.0-44.0) % Monocytes % 8.7 (0.0-12.0) % Eosinophils % 7.1 H (0.00-5.0) % Basophils % 0.2 (0.0-0.4) % Basophils # 0.01 (0-0.4) Sodium (136-145) mEq/L Potassium (3.5-5.1) mEq/L Chloride (98-107) mEq/L Carbon Dioxide (21-32) mEq/L Anion Gap (5-15) MEQ/L BUN (9-20) mg/dL Creatinine (0.55-1.30) mg/dl Estimated GFR ML/MIN Glucose (70-110) MG/DL Lactic Acid (0.4-2.0) Calcium (8.5-10.1) mg/dL Total Bilirubin (0.2-1.0) mg/dL AST (15-37) U/L ALT (12-78) U/L Alkaline Phosphatase (46-116) U/L Troponin I (0.000-0.056) ng/ml Serum Total Protein (6.4-8.2) gm/dL Albumin (3.4-5.0) g/dL Ur Collection Type Urine Color (YELLOW) Urine Appearance (CLEAR) Urine pH (5-6) Ur Specific [place] (1.005-1.025) Urine Protein (Negative) Urine Ketones (NEGATIVE) Urine Blood (0-5) Shiva/ul Urine Nitrite (NEGATIVE) Urine Bilirubin (NEGATIVE) Urine Urobilinogen (0-1) mg/dL Ur Leukocyte Esterase (NEGATIVE) Urine Microscopic RBC (0-2) /HPF Urine Microscopic WBC (0-5) /HPF Urine Bacteria (NEGATIVE) /HPF Urine Glucose (NEGATIVE) mg/dL Specimen Received - Progress Progress Note: 12/06/16 18:34 CT Brain: ilene 6:32 PM 12/06/2016: Stable senile findings & old infarcts compared to 09/04/16. No new/acute findings. 12/06/16 18:45 Pt has decreased response. Called Dr Nascimento. Appears mildly dehydrated. This state is pretty typical and he does not appear to have acute problem. He has guarded prognosis as poor condition with progressive dementia and parkinson. Will retur to [facility]. He was given IVF here. Counseled pt/family regarding: diagnosis, need for follow-up - Departure Time of Disposition: 18:46 Departure Disposition: Home Clinical Impression: Dehydration, Dementia, Parkinson disease Condition: Stable Critical Care Time: No Referrals: KAYLENE NASCIMENTO [Primary Care Provider] - Instructions: Dehydration -- Adult Additional Instructions: Further care per Dr Nascimento. Fall precautions. Encourage po intake as per diet order. Continue same medications.
[2016-12-06] MEDS ORDERED: Sodium Chloride 0.9% 1000 ML 1,000 ML ONE (17:40)
[2016-12-06 17:42] LABS: BASOPHIL % 0.2 % (0.0-0.4); Eosinophil % 7.1 % (0.00-5.0); Granulocytes % 52.4 % (36.0-66.0); Lymphocytes % 31.6 % (24.0-44.0); Mean Corpuscular Hemoglobin 31.8 pg (26-32); Monocytes % 8.7 % (0.0-12.0); Platelet Count 123 K/mm3 (150-450); Red Blood Count 4.21 M/mm3 (4.1-5.6); White Blood Count 4.5 K/mm3 (4.0-10.5)
[2016-12-06 18:10] LABS: ALBUMIN 3.3 g/dL (3.4-5.0); ALKALINE PHOSPHATASE 88 U/L (46-116); BLOOD UREA NITROGEN 15 mg/dL (9-20); CHLORIDE 112 mEq/L (98-107); Carbon Dioxide 26.6 mEq/L (21-32); Glucose 85 MG/DL (70-110); Potassium 3.7 mEq/L (3.5-5.1); SGOT/AST 21 U/L (15-37); SGPT/ALT 14 U/L (12-78); SODIUM 149 mEq/L (136-145); Total Protein 6.8 gm/dL (6.4-8.2)
[2016-12-06 18:11] LABS: TROPONIN < 0.017 ng/ml (0.000-0.056)
[2016-12-06 18:15] LABS: Collection Type CATH; Leukocyte Esterase 1+ (NEGATIVE)
[2016-12-06 18:16] LABS: Bacteria RARE /HPF (NEGATIVE); Bilirubin NEGATIVE (NEGATIVE); Blood 250 Ery/ul (0-5); COMPLETE URINE MICROSCOPIC? YES; Glucose NEGATIVE (NEGATIVE)
[2016-12-06 18:17] LABS: ADD URINE CULTURE? YES (NO)
[2016-12-06 18:35] VITALS: O2SAT 97
[2016-12-06 20:42] VITALS: BP 148/76; PULSE 66
--- NOTE | 2016-12-07 08:38 | XRAY ---
Indication: Acute mental status change. Parkinson's disease. Multiple contiguous axial images obtained through head without contrast. Comparison: September 04, 2016. Stable age-appropriate global atrophy, moderate periventricular degenerative micro-ischemia bilaterally, and left thalamic remote infarcts. No acute intracranial hemorrhage, abnormal extra-axial fluid collection, or mass effect. Fourth ventricle is midline without hydrocephalus. Bony calvarium intact. Visualized paranasal sinuses and mastoid air cells are pneumatized and clear. Impression: Stable nonacute senile brain with small old infarcts. CT DI 52.42
--- NOTE | 2016-12-07 08:42 | XRAY ---
Indication: Acute mental status change. Comparison: July 06, 2016. Portable chest obtained. Left lung base again obscured due to cardiac silhouette. Remaining lungs clear. Heart is borderline enlarged. Bony thorax intact again with osteopenia, degenerative changes, and old left clavicle/left rib fractures. Impression: Nonacute chest with chronic features.
== END 2016-12-06 20:41 | disposition home or self-care (01) ==
LOC: ED 17:19
DX: E86.0 Dehydration (principal); F03.90 Unspecified dementia, unspecified severity, without behavioral disturbance, psychotic disturbance, mood disturbance, and anxiety; G20 Parkinson's disease; G30.9 Alzheimer's disease, unspecified; Z79.899 Other long term (current) drug therapy
CPT/HCPCS: 36415; 51702; 70450; 71010; 80053; 81000; 83605; 84484; 85025; 87086; 93005; 96365; 96366; 99284; 99285

== ENCOUNTER 2017-03-08 19:14 | Inpatient (IN) | payer MEDICARE, MEDICAID ==
[2017-03-08] MEDS: Lactated Ringers 1,000 ML IV SCH (20:49)
[2017-03-08] MEDS ORDERED: TYLENOL 325 MG PO PRN (23:10)
[2017-03-08] MEDS ORDERED: Pepcid 20 MG ONE (23:29)
[2017-03-08] MEDS ORDERED: Pepcid 20 MG PO ONE (23:30)
[2017-03-08] MEDS: Sinemet 25/250 MG PO ONE (23:53)
[2017-03-08] MEDS: SENOKOT 8.6 MG PO ONE (23:53)
[2017-03-09] MEDS: SENOKOT 8.6 MG PO ONE (00:22)
[2017-03-09] MEDS: Sinemet 25/250 MG PO ONE (00:24)
[2017-03-09] MEDS: Lactated Ringers 1,000 ML IV SCH (02:15)
[2017-03-09 05:57] LABS: Mean Cell Volume 102.3 fl (78-100); Mean Platelet Volume 13.7 fl (6-9.5); Platelet Count 96 K/mm3 (150-450); Red Blood Count 3.51 M/mm3 (4.1-5.6); Red Cell Distribution Width 14.8 % (11.5-14.0); White Blood Count 3.7 K/mm3 (4.0-10.5)
[2017-03-09 06:08] LABS: ANION GAP 9.1 MEQ/L (5-15); BLOOD UREA NITROGEN 26 mg/dL (9-20); CHLORIDE 122 mEq/L (98-107); Carbon Dioxide 32.6 mEq/L (21-32); Glucose 69 MG/DL (70-110); Potassium 3.6 mEq/L (3.5-5.1)
[2017-03-09 06:31] LABS: SODIUM 160 mEq/L (136-145)
[2017-03-09] MEDS ORDERED: Lactated Ringers 1,000 ML IV ONE (07:32)
[2017-03-09] MEDS ORDERED: THIAMINE 200 MG/2 ML IV ONE (07:34)
--- NOTE | 2017-03-09 07:47 | PCM.HP ---
History of Present Illness - Chief Complaint Chief Complaint: Dehydration Date: 03/09/17 History of Present Illness: is a 86 year old male. Suffers from parkinsonism and dementia lives at [facility] He has had decreased po intake over the last several months routine blood work showed a sodium of 160 had been chronically elevated to about 150 he is on thickened liquids due to recurrent aspirations. Discussion with his daughter and poa she requested with his dehydration we try to rehydrate him but did not want feeding tube placed. Attampt at IV at halfway was unsuccessful and he was sent for admission for hydration and treatment of his hypernatremia. He is unable to provide history due to his mental status. - Review of Systems Constitutional: Other (unable to obtain) Medications & Allergies Home Medications: Home Medication List Clopidogrel Bisulfate [Clopidogrel] 75 mg PO DAILY 06/03/16 [History Confirmed 03/08/17] Metoprolol Succinate 50 mg PO BID 06/03/16 [History Confirmed 03/08/17] Solifenacin Succinate [Vesicare] 10 mg PO DAILY 06/03/16 [History Confirmed 08/20] Bisacodyl 5 mg [Dulcolax 5 mg] 10 mg PO HSPRN PRN 06/25/16 [History Confirmed 03/08/17] Clonidine HCl Tts-1 Patch [Catapres-TTS 1 PATCH] 0.1 mg TOP WEEKLY [History Confirmed 03/08/17] Mag Hydrox/Al Hydrox/Simeth [Mylanta Maximum Strength Liq] 2 ml PO Q4HPRN PRN [History Confirmed 03/08/17] Magnesium Hydroxide 30 ml [Milk of Magnesia 30 ml] 30 ml PO DAILY PRN PRN 06/25/16 [History Confirmed 03/08/17] Acetaminophen [Tylenol] 650 mg PO Q4H PRN PRN #30 tablet 11/30/16 [Rx Confirmed 03/08/17] Carbidopa/Levodopa [Carbidopa-Levodopa 25-250 Tab] 1 each PO BID 03/08/17 [ History Confirmed 03/08/17] Escitalopram Oxalate 5 mg PO DAILY 03/08/17 [History Confirmed 03/08/17] Ranitidine HCl 150 mg PO HS 03/08/17 [History Confirmed 03/08/17] Sennosides 17.2 mg PO BID 03/08/17 [History Confirmed 03/08/17] Allergies/Adverse Reactions: Allergies Allergy/AdvReac Type Severity Reaction Status Date / Time Penicillins Allergy Verified 12/06/16 17:29 ampicillin AdvReac Mild Vomiting Verified 12/06/16 17:29 - Past Medical History Past Medical History: Yes Neurological History: Alzheimer's Disease, Stroke, Other Cardiac History: Arrhythmia, High Cholesterol, Hypertension Respiratory History: COPD Musculoskelatal History: Arthritis, Fractures GI Medical History: No Pertinent History History: Other Pyscho-Social History: Depression Male Reproductive Disorders: Prostate Cancer, Prostate Problems Comment: Parkinsons, BPH, malignant melanoma of skin - Past Surgical History Past Surgical History: Yes Neuro Surgical History: No Pertinent History Cardiac History: No Pertinent History Respiratory Surgery: No Pertinent History GI Surgical History: No Pertinent History Genitourinary Surgical Hx: No Pertinent History Musculskeletal Surgical Hx: Orthopedic Surgery Male Surgical History: No Pertinent History Other Surgical History: back surgery, knee surgery - Social History Smoking Status: Unknown if ever smoked Exposure to second hand smoke: No Alcohol: None Drug Use: none - Physical Exam Vital Signs: Vital Signs - 24 hr Temp Pulse Resp BP Pulse Ox 03/09/17 07:19 96.8 F 58 L 18 136/70 97 03/09/17 04:00 96.0 F 53 L 14 134/68 96 03/09/17 00:00 97.0 F 50 L 15 138/79 97 03/08/17 21:43 97.8 F 48 L 17 138/65 99 03/08/17 20:00 97.8 F 48 L 17 138/65 General Appearance: no apparent distress Neurologic Exam: other (opens eyes but sleeps through most of exam. moves all extremities equally. His chronic dementia limits exam) Eye Exam: PERRL/EOMI, pale conjunctivae Ears, Nose, Throat Exam: dry mucous membranes Neck Exam: non-tender, supple Respiratory Exam: normal breath sounds, lungs clear Cardiovascular Exam: bradycardia, No murmur, No edema Gastrointestinal/Abdomen Exam: soft, normal bowel sounds, No tenderness Skin Exam: other (dry skin with poor turgor) Results - Labs Lab/Micro Results: Lab Results-Last 24 Hours 03/09/17 03/09/17 03/09/17 Range/Units 05:18 05:18 05:18 WBC 3.7 L (4.0-10.5) K/mm3 RBC 3.51 L (4.1-5.6) M/mm3 Hgb 11.6 L (12.5-18.0) gm/dl Hct 35.9 L (42-50) % MCV 102.3 H (78-100) fl MCH 33.0 H (26-32) pg MCHC 32.3 (32-36) g/dl RDW 14.8 H (11.5-14.0) % Plt Count 96 L (150-450) K/mm3 MPV 13.7 H (6-9.5) fl Sodium 160 H* (136-145) mEq/L Potassium 3.6 (3.5-5.1) mEq/L Chloride 122 H (98-107) mEq/L Carbon Dioxide 32.6 H (21-32) mEq/L Anion Gap 9.1 (5-15) MEQ/L BUN 26 H (9-20) mg/dL Creatinine 1.20 (0.55-1.30) mg/dl Estimated GFR > 60 ML/MIN Glucose 69 L (70-110) MG/DL Calcium 9.1 (8.5-10.1) mg/dL Prealbumin 15.2 L (18.0-35.7) mg/dL Assessment/Plan (1) Hypernatremia Current Visit: Yes Status: Acute Assessment & Plan: he received 2 L of LR slowly at 250 mL/h overnight and just completed this no change in Na level with still appeared dehydrated give 100 mg IV thiamine will give additional 2L fast now that he has better ability for IV access then start D5 at 70 mL/h and repeat bmp at 17:00 goal is correction of hypovolemia and hyernatremia then return to ecf Code(s): E87.0 - HYPEROSMOLALITY AND HYPERNATREMIA (2) Dehydration Current Visit: Yes Status: Acute Code(s): E86.0 - DEHYDRATION (3) Parkinson disease Current Visit: Yes Status: Chronic Code(s): G20 - PARKINSON'S DISEASE (4) Dementia Current Visit: Yes Status: Chronic Qualifiers: Code(s): F03.90 - UNSPECIFIED DEMENTIA WITHOUT BEHAVIORAL DISTURBANCE (5) Stroke Current Visit: Yes Status: Chronic Code(s): I63.9 - CEREBRAL INFARCTION, UNSPECIFIED (6) Dysphagia Current Visit: Yes Status: Chronic Code(s): R13.10 - DYSPHAGIA, UNSPECIFIED (7) COPD (chronic obstructive pulmonary disease) Current Visit: Yes Status: Chronic
[2017-03-09] MEDS ORDERED: Dextrose 5%/Water IV Soln. 1000 ML 1,000 ML IV SCH (08:00)
[2017-03-09] MEDS ORDERED: Lactated Ringers 1,000 ML IV SCH (08:00)
[2017-03-09] MEDS ORDERED: DULCOLAX 5 MG PO PRN (08:30)
[2017-03-09] MEDS ORDERED: ESCITALOPRAM OXALATE 5 MG PO SCH (10:00)
[2017-03-09] MEDS: SENOKOT 8.6 MG PO SCH ×3 (11:50→22:41)
[2017-03-09] MEDS: Lexapro 10 MG PO SCH (11:50)
[2017-03-09] MEDS: PLAVIX 75 MG Tablet PO SCH (11:50)
[2017-03-09] MEDS: Ditropan 5 MG PO SCH ×2 (11:50→22:37)
[2017-03-09] MEDS: Sinemet 25/250 MG PO SCH ×2 (11:52→22:37)
[2017-03-09 18:05] LABS: ANION GAP 10.5 MEQ/L (5-15); BLOOD UREA NITROGEN 19 mg/dL (9-20); CHLORIDE 115 mEq/L (98-107); Carbon Dioxide 28.9 mEq/L (21-32); Glucose 141 MG/DL (70-110); Potassium 3.4 mEq/L (3.5-5.1)
[2017-03-09 18:16] LABS: SODIUM 151 mEq/L (136-145)
[2017-03-09] MEDS: D5W/0.45NS W/ 20mEq KCl 1000 ML 1,000 ML IV SCH (21:47)
[2017-03-09] MEDS ORDERED: NON-FORMULARY ITEM (Ranitidine Hcl [Ranitidine Hcl] 150 MG) PO SCH (22:00)
[2017-03-09] MEDS: Pepcid 20 MG PO SCH (22:36)
[2017-03-09] MEDS ORDERED: Pepcid 20 MG PO ONE (23:30)
[2017-03-10 06:17] LABS: ANION GAP 9.3 MEQ/L (5-15); BLOOD UREA NITROGEN 17 mg/dL (9-20); CHLORIDE 114 mEq/L (98-107); Carbon Dioxide 30.4 mEq/L (21-32); Glucose 89 MG/DL (70-110); Potassium 3.4 mEq/L (3.5-5.1); SODIUM 149 mEq/L (136-145)
--- NOTE | 2017-03-10 08:04 | PCM.NOTE ---
Date and Time: 03/10/17 0800 Subjective Assessment: IMproved mental status this am more alert still confused at his baseline and most speech is not understandable not answering questions appropriately but near his baseline mental status now more alert Objective Exam General Appearance: no apparent distress Neurologic Exam: alert Skin Exam: warm, dry Ears, Nose, Throat Exam: dry mucous membranes Respiratory Exam: normal breath sounds Cardiovascular Exam: bradycardia Gastrointestinal/Abdomen Exam: soft, normal bowel sounds, No tenderness Extremity Exam: normal inspection, No pedal edema OBJECTIVE DATA Vital Signs: Vital Signs - 24 hr Temp Pulse Resp BP Pulse Ox 03/10/17 07:28 72 20 161/82 96 03/10/17 04:00 97.3 F 65 18 147/81 95 03/09/17 23:35 97.6 F 62 20 149/63 95 03/09/17 20:00 97.1 F 60 16 124/59 96 03/09/17 15:12 98.8 F 57 L 24 149/69 96 03/09/17 12:40 97.8 F 56 L 18 130/57 96 Pain Assessment - Last Documented Pain Scale Used [facility] Intake and Output: Intake & Output 03/07/17 03/08/17 03/09/17 03/10/17 11:59 11:59 11:59 11:59 Intake Total 3381 2687 Balance 3381 2687 Weight 58.105 kg Lab Results: Lab Results-Last 24 Hours 03/09/17 03/09/17 03/10/17 Range/Units 05:18 17:45 05:37 Sodium 151 H* 149 H (136-145) mEq/L Potassium 3.4 L 3.4 L (3.5-5.1) mEq/L Chloride 115 H 114 H (98-107) mEq/L Carbon Dioxide 28.9 30.4 (21-32) mEq/L Anion Gap 10.5 9.3 (5-15) MEQ/L BUN 19 17 (9-20) mg/dL Creatinine 1.14 1.11 (0.55-1.30) mg/dl Estimated GFR > 60 > 60 ML/MIN Glucose 141 H 89 (70-110) MG/DL Calcium 8.7 9.1 (8.5-10.1) mg/dL Slides for Path Review YES Assessment/Plan (1) Hypernatremia Current Visit: Yes Status: Acute Assessment & Plan: yesterday on the D5 after 4 L of LR for volume resucitation he dropped 9 points so was changed to d51/2 given his continued lack of po intake to slow rate of correction of hypernatremia and prevent volume depletion improved again to 149 today down 11 points in 24 hours will continue with the D51/2 increase the rate today and repeat bmp at 5 tonight if sodium not improving will go back to the D5 especially with improved po intake. Code(s): E87.0 - HYPEROSMOLALITY AND HYPERNATREMIA (2) Dehydration Current Visit: Yes Status: Acute Code(s): E86.0 - DEHYDRATION (3) Parkinson disease Current Visit: Yes Status: Chronic Code(s): G20 - PARKINSON'S DISEASE (4) Dementia Current Visit: Yes Status: Chronic Qualifiers: Code(s): F03.90 - UNSPECIFIED DEMENTIA WITHOUT BEHAVIORAL DISTURBANCE (5) Stroke Current Visit: Yes Status: Chronic Code(s): I63.9 - CEREBRAL INFARCTION, UNSPECIFIED (6) Dysphagia Current Visit: Yes Status: Chronic Code(s): R13.10 - DYSPHAGIA, UNSPECIFIED (7) COPD (chronic obstructive pulmonary disease) Current Visit: Yes Status: Chronic
[2017-03-10] MEDS: Lexapro 10 MG PO SCH (08:37)
[2017-03-10] MEDS: SENOKOT 8.6 MG PO SCH ×2 (08:38→21:46)
[2017-03-10] MEDS: Ditropan 5 MG PO SCH ×2 (08:38→21:46)
[2017-03-10] MEDS: PLAVIX 75 MG Tablet PO SCH (08:38)
[2017-03-10] MEDS: Sinemet 25/250 MG PO SCH ×2 (08:38→21:47)
[2017-03-10] MEDS: D5W/0.45NS W/ 20mEq KCl 1000 ML 1,000 ML IV SCH (10:36)
[2017-03-10 17:55] LABS: ANION GAP 9.4 MEQ/L (5-15); Carbon Dioxide 31.3 mEq/L (21-32); Potassium 3.9 mEq/L (3.5-5.1)
[2017-03-10] MEDS: Dextrose 5%/Water IV Soln. 1000 ML 1,000 ML IV SCH (18:27)
[2017-03-10] MEDS: Pepcid 20 MG PO SCH (21:46)
[2017-03-11 07:36] LABS: ANION GAP 11.2 MEQ/L (5-15); Carbon Dioxide 27.8 mEq/L (21-32); Potassium 3.7 mEq/L (3.5-5.1)
[2017-03-11] MEDS: Dextrose 5%/Water IV Soln. 1000 ML 1,000 ML IV SCH ×2 (08:12→18:35)
[2017-03-11] MEDS: Lexapro 10 MG PO SCH (09:09)
[2017-03-11] MEDS: SENOKOT 8.6 MG PO SCH ×2 (09:09→21:21)
[2017-03-11] MEDS: PLAVIX 75 MG Tablet PO SCH (09:10)
[2017-03-11] MEDS: Sinemet 25/250 MG PO SCH ×2 (09:10→21:21)
[2017-03-11] MEDS: Ditropan 5 MG PO SCH ×2 (09:10→21:22)
[2017-03-11] MEDS ORDERED: Catapres-TTS 1 PATCH TOP SCH (10:00)
[2017-03-11 16:00] LABS: ANION GAP 10.6 MEQ/L (5-15); Carbon Dioxide 28.7 mEq/L (21-32); Potassium 3.8 mEq/L (3.5-5.1)
--- NOTE | 2017-03-11 17:19 | PCM.NOTE ---
Date and Time: 03/11/171712 Subjective Assessment: He has no changes continues to be arousable but speech mostly not understandable he picks at thinks and tells me that person doesn't know how to do it but I'm not sure what he is trying to refer to. He doesn't really given an appropriate response to any of the questions right now. Objective Exam General Appearance: no apparent distress Neurologic Exam: other (arousable moving all extremities), No oriented x 3 Skin Exam: warm, dry Neck Exam: normal inspection, non-tender, supple Respiratory Exam: normal breath sounds, No respiratory distress Cardiovascular Exam: regular rate/rhythm Gastrointestinal/Abdomen Exam: soft, normal bowel sounds, No tenderness Extremity Exam: normal inspection, No pedal edema OBJECTIVE DATA Vital Signs: Vital Signs - 24 hr Temp Pulse Resp BP Pulse Ox 03/11/17 16:00 100.9 F 98 H 20 122/86 93 L 03/11/17 11:26 99.7 F 96 H 18 120/82 94 L 03/11/17 07:13 98.4 F 97 H 18 123/85 93 L 03/11/17 03:58 97.7 F 62 20 138/66 96 03/11/17 00:05 97.5 F 64 16 129/77 96 03/10/17 20:07 97.3 F 64 18 143/76 97 Pain Assessment - Last Documented Pain Scale Used [facility] Intake and Output: Intake & Output 03/09/17 03/10/17 03/11/17 03/12/17 11:59 11:59 11:59 11:59 Intake Total 3381 2807 1309 720 Balance 3381 2807 1309 720 Weight 58.105 kg Lab Results: Lab Results-Last 24 Hours 03/10/17 03/11/17 03/11/17 Range/Units 17:00 07:10 15:28 Sodium 149 H 150 H* 148 H (136-145) mEq/L Potassium 3.9 3.7 3.8 (3.5-5.1) mEq/L Chloride 112 H 115 H 112 H (98-107) mEq/L Carbon Dioxide 31.3 27.8 28.7 (21-32) mEq/L Anion Gap 9.4 11.2 10.6 (5-15) MEQ/L BUN 15 13 12 (9-20) mg/dL Creatinine 1.34 H 1.55 H 1.52 H (0.55-1.30) mg/dl Estimated GFR 53 45 46 ML/MIN Glucose 103 90 100 (70-110) MG/DL Calcium 9.2 9.2 8.6 (8.5-10.1) mg/dL Radiology Exams: Radiology Procedures Category Date Time Status CHEST 1 VIEW (PORTABLE) Stat Exams 03/11/17 17:04 Ordered Assessment/Plan (1) Hypernatremia Current Visit: Yes Status: Acute Assessment & Plan: last night after BMP at 18:30 he was to be changed back to the D5W fluids however nursing inadvertently started D5 normal saline and therefor his sodium went up this am to 150. Nursing was made aware and his fluids were switched to D5W and increased to 100 mL/h Sodium improved this afternoon would be best if we could get it into the normal range prior to discharge. Also this afternoon had low grade fever to 100.9. Suspect due to atelectasis will check cxr and ua no clear source of infection. CBC w diff and CMP ordered for am. He has been off the metoprolol since admission and hr improved plan to continue off this at discharge and continue on the clonidine patch. At discharge we plan to continue on the honey thick liquids due to his repeated aspirations, but Nursing at [facility] have been instructed on starting the Colon water protocol for him so he is able to have regular water only with no thickener available at anytime except with meals and 30 mins following meals. He is to have oral care as instructed as well. Code(s): E87.0 - HYPEROSMOLALITY AND HYPERNATREMIA (2) Dehydration Current Visit: Yes Status: Acute Code(s): E86.0 - DEHYDRATION (3) Parkinson disease Current Visit: Yes Status: Chronic Code(s): G20 - PARKINSON'S DISEASE (4) Dementia Current Visit: Yes Status: Chronic Qualifiers: Code(s): F03.90 - UNSPECIFIED DEMENTIA WITHOUT BEHAVIORAL DISTURBANCE (5) Stroke Current Visit: Yes Status: Chronic Code(s): I63.9 - CEREBRAL INFARCTION, UNSPECIFIED (6) Dysphagia Current Visit: Yes Status: Chronic Code(s): R13.10 - DYSPHAGIA, UNSPECIFIED (7) COPD (chronic obstructive pulmonary disease) Current Visit: Yes Status: Chronic
[2017-03-11] MEDS ORDERED: FEVERALL 650 MG PR PRN (17:28)
[2017-03-11 19:05] LABS: Bilirubin NEGATIVE (NEGATIVE); Blood 250 Ery/ul (0-5); COMPLETE URINE MICROSCOPIC? YES; Collection Type CCMS; Glucose NEGATIVE (NEGATIVE); Leukocyte Esterase 2+ (NEGATIVE)
[2017-03-11 19:06] LABS: ADD URINE CULTURE? YES (NO); Bacteria RARE /HPF (NEGATIVE); WBC >100 /HPF (0-5)
[2017-03-11] MEDS: Pepcid 20 MG PO SCH (21:22)
--- NOTE | 2017-03-11 22:38 | XRAY ---
Indication: Fever. Comparison: December 06, 2016. Portable chest underinflated today with possible left base infiltrate/atelectasis. Right lung clear. Heart remains borderline enlarged. Bony thorax intact again with osteopenia, degenerative changes, and old left clavicle/left rib fractures. Comment: Preliminary interpretation was made by [facility]. No discrepancy.
[2017-03-12] MEDS: Dextrose 5%/Water IV Soln. 1000 ML 1,000 ML IV SCH (04:49)
[2017-03-12 06:16] LABS: BASOPHIL % 0.2 % (0.0-0.4); Eosinophil % 1.2 % (0.00-5.0); Granulocytes % 60.3 % (36.0-66.0); Lymphocytes % 23.9 % (24.0-44.0); Mean Cell Volume 99.1 fl (78-100); Mean Corpuscular Hemoglobin 32.8 pg (26-32); Mean Platelet Volume 12.2 fl (6-9.5); Monocytes % 14.4 % (0.0-12.0); Platelet Count 64 K/mm3 (150-450); Red Cell Distribution Width 14.5 % (11.5-14.0); White Blood Count 4.2 K/mm3 (4.0-10.5)
[2017-03-12 06:36] LABS: ALBUMIN 2.4 g/dL (3.4-5.0); ALKALINE PHOSPHATASE 136 U/L (46-116); ANION GAP 10.8 MEQ/L (5-15); BLOOD UREA NITROGEN 11 mg/dL (9-20); CHLORIDE 110 mEq/L (98-107); Carbon Dioxide 26.4 mEq/L (21-32); Glucose 111 MG/DL (70-110); Potassium 3.2 mEq/L (3.5-5.1); SGOT/AST 35 U/L (15-37); SODIUM 144 mEq/L (136-145)
[2017-03-12 07:35] LABS: SGPT/ALT < 6 U/L (12-78)
[2017-03-12] MEDS ORDERED: Klor Con 10 MEQ PO ONE (08:17)
[2017-03-12] MEDS: SENOKOT 8.6 MG PO SCH (08:40)
[2017-03-12] MEDS: Ditropan 5 MG PO SCH (08:40)
[2017-03-12] MEDS: PLAVIX 75 MG Tablet PO SCH (08:55)
[2017-03-12] MEDS: Sinemet 25/250 MG PO SCH (08:55)
[2017-03-12] MEDS: Lexapro 10 MG PO SCH (08:55)
[2017-03-12] MEDS ORDERED: POTASSIUM CHLORIDE 20 mEq IN WATER 100ML 20 MEQ/100 ML BAG IV ONE (10:32)
--- NOTE | 2017-03-12 13:38 | PCM.DCORD ---
- Discharge Discharge Date: 03/12/17 Disposition: DC TO [facility] Condition: Fair Prescriptions: Continue Solifenacin Succinate [Vesicare] 10 mg PO DAILY Clopidogrel Bisulfate [Clopidogrel] 75 mg PO DAILY Magnesium Hydroxide 30 ml [Milk of Magnesia 30 ml] 30 ml PO DAILY PRN PRN PRN Reason: Constipation Bisacodyl 5 mg [Dulcolax 5 mg] 10 mg PO HSPRN PRN PRN Reason: Constipation Clonidine HCl Tts-1 Patch [Catapres-TTS 1 PATCH] 0.1 mg TOP WEEKLY Mag Hydrox/Al Hydrox/Simeth [Mylanta Maximum Strength Liq] 2 ml PO Q4HPRN PRN PRN Reason: Indigestion Acetaminophen [Tylenol] 650 mg PO Q4H PRN PRN #30 tablet PRN Reason: Pain Ranitidine HCl 150 mg PO HS Carbidopa/Levodopa [Carbidopa-Levodopa 25-250 Tab] 1 each PO BID Escitalopram Oxalate 5 mg PO DAILY Sennosides 17.2 mg PO BID Discontinued Metoprolol Succinate 50 mg PO BID Additional Instructions: Dr. Kaylene Nascimento would like him to be on the Colon Free Water protocol. He may have free water EXCEPT for at meals and 30 minutes after meals and during that time, his liquids should be honey-thickened. Oral care at least four times a day. Follow up with: KAYLENE NASCIMENTO [Primary Care Provider] - 1 Week Forms: Patient Portal Information
[2017-03-12 16:25] VITALS: BP 110/62; PULSE 76; O2SAT 94
--- NOTE | 2017-03-14 13:02 | DS ---
DISCHARGE DIAGNOSES: 1) HYPERNATREMIA NOW RESOLVED. 2) DEHYDRATION. 3) PARKINSON'S DISEASE. 4) DEMENTIA. 5) HISTORY OF STROKE. 6) DYSPHAGIA. 7) CHRONIC OBSTRUCTIVE PULMONARY DISEASE. DISCHARGE PHYSICAL EXAMINATION: VITALS: Temperature current 98.3F, temperature max 100.9F, heart rate 78 to 91 currently 78, respiratory rate 18 to 20, blood pressure 100 to 135 over 53 to 83. Oxygen saturation 91 to 96% on room air. GENERAL: The patient is lying in bed in no acute distress. He arouses to voice but his speech is unintelligible. He will not open his eyes at this time. CVS: He has a regular rate and rhythm. No murmurs, gallops or rubs are appreciated. CHEST: Clear to auscultation bilaterally. No crackles or wheezes. ABDOMEN: Soft, nontender, nondistended with normal bowel sounds. EXTREMITIES: No clubbing, cyanosis or edema. SKIN: Warm, dry and intact. HOSPITAL COURSE: 1) HYPERNATREMIA: Dr. Srinath Moss corrected his sodium during this hospitalization with IV fluids and his sodium at the time of discharge was 144. He was on honey-thickened liquids here. Dr. Srinath Moss wanted him to be on a Colon protocol when he was discharged where he could have free water except for with meals and right after meals. 2) DEHYDRATION: Resolved with IV fluids. 3) PARKINSON'S: About his baseline. His home medications were continued. 4) DEMENTIA: His baseline and home medications were continued. 5) HISTORY OF STROKE. 6) DYSPHAGIA. He is on honey-thickened liquids during his meal and 30 minutes after. 7) CHRONIC OBSTRUCTIVE PULMONARY DISEASE: Stable during his hospitalization. DISCHARGE MEDICATIONS: Please see the discharge order. All of his home medications were resumed except his metoprolol was stopped. DISPOSITION: The patient was discharged back to [facility].
== END 2017-03-12 16:30 | DRG 999 ==
LOC: MED SURG 19:14 → OBSVTOIN 03-10 07:53
PROVIDERS: ADMIT Family Medicine; ATTEND Family Medicine
DX: E87.0 Hyperosmolality and hypernatremia (principal); E86.0 Dehydration; G20 Parkinson's disease; F02.80 Dementia in other diseases classified elsewhere, unspecified severity, without behavioral disturbance, psychotic disturbance, mood disturbance, and anxiety; R13.10 Dysphagia, unspecified; Z86.73 Personal history of transient ischemic attack (TIA), and cerebral infarction without residual deficits; J44.9 Chronic obstructive pulmonary disease, unspecified
CPT/HCPCS: 36415; 71010; 80048; 80053; 81000; 84132; 84134; 85025; 85027; 87086; G0378; J3480; A9270-GY

== ENCOUNTER 2017-04-10 08:23 | Inpatient (IN) | payer MEDICARE ==
[2017-04-10] MEDS ORDERED: Sodium Chloride 0.9% 1000 ML 1,000 ML ONE ×2 (08:29→09:52)
[2017-04-10] MEDS ORDERED: Zosyn 3.375GM/100 Ml D5W 3.375 GM/100 ML IVPB IV STA (08:37)
[2017-04-10] MEDS ORDERED: Zofran 4 MG/2 ML VIAL IV ONE (08:38)
[2017-04-10] MEDS ORDERED: Sodium Chloride 0.9% 1000 ML 1,000 ML IV STA (08:38)
--- NOTE | 2017-04-10 08:43 | ERPHSYRPT ---
- History of Present Illness Time Seen by Provider: 04/10/17 08:30 Source: EMS, group home records, old records Exam Limitations: clinical condition Physician History: 86 y/o male with history of dementia and Parkinson's disease sent from [place] for fever. Pt was started on NS fluids and tylenol. As per the EMS, there was some food particles near his mouth. Pt arrives in moderate respiratory distress with a BP of 88/50 and audible rhonchi. Pt is a DNR and is not able to provide any history. Timing/Duration: today Fever Severity: mild Fever Therapy AIR VALUE TESTER: Acetaminophen Associated Symptoms: nausea/vomiting Allergies/Adverse Reactions: Penicillins Allergy (Verified 12/06/16 17:29) ampicillin Adverse Reaction (Mild, Verified 12/06/16 17:29) Vomiting Home Medications: Clopidogrel Bisulfate [Clopidogrel] 75 mg PO DAILY 06/03/16 [History] Solifenacin Succinate [Vesicare] 10 mg PO DAILY 06/03/16 [History] Bisacodyl 5 mg [Dulcolax 5 mg] 10 mg PO HSPRN PRN 06/25/16 [History] Clonidine HCl Tts-1 Patch [Catapres-TTS 1 PATCH] 0.1 mg TOP WEEKLY [History] Mag Hydrox/Al Hydrox/Simeth [Mylanta Maximum Strength Liq] 2 ml PO Q4HPRN PRN [History] Magnesium Hydroxide 30 ml [Milk of Magnesia 30 ml] 30 ml PO DAILY PRN PRN 06/25/16 [History] Carbidopa/Levodopa [Carbidopa-Levodopa 25-250 Tab] 1 each PO BID 03/08/17 [ History] Escitalopram Oxalate 5 mg PO DAILY 03/08/17 [History] Ranitidine HCl 150 mg PO HS 03/08/17 [History] Sennosides 17.2 mg PO BID 03/08/17 [History] Hx Tetanus, Diphtheria Vaccination/Date Given: No Hx Influenza Vaccination/Date Given: Yes Hx Pneumococcal Vaccination/Date Given: Yes - Review of Systems Constitutional: Lethargy, Weakness, No Fever, No Chills Eyes: No Symptoms Ears, Nose, & Throat: No Symptoms Respiratory: Cough, Dyspnea Cardiac: No Chest Pain, No Edema, No Syncope Abdominal/Gastrointestinal: No Abdominal Pain, No Nausea, No Vomiting, No Diarrhea Genitourinary Symptoms: No Dysuria Musculoskeletal: No Back Pain, No Neck Pain Skin: No Rash Neurological: No Dizziness, No Focal Weakness, No Sensory Changes Psychological: No Symptoms Endocrine: No Symptoms All Other Systems: Reviewed and Negative - Past Medical History Pertinent Past Medical History: Yes Neurological History: Alzheimer's Disease, Stroke, Other Cardiac History: Arrhythmia, High Cholesterol, Hypertension Respiratory History: COPD Musculoskeletal History: Arthritis, Fractures GI Medical History: No Pertinent History History: Other Psycho-Social History: Depression Male Reproductive Disorders: Prostate Cancer, Prostate Problems Other Medical History: Parkinsons, BPH, malignant melanoma of skin - Past Surgical History Past Surgical History: Yes Neuro Surgical History: No Pertinent History Cardiac: No Pertinent History Respiratory: No Pertinent History Gastrointestinal: No Pertinent History Genitourinary: No Pertinent History Musculoskeletal: Orthopedic Surgery Male Surgical History: No Pertinent History Other Surgical History: back surgery, knee surgery - Social History Smoking Status: Unknown if ever smoked Exposure to second hand smoke: No Drug Use: none Patient Lives Alone: No ([facility]) - Nursing Vital Signs Nursing Vital Signs: Initial Vital Signs Pulse Rate 86 04/10/17 08:25 Respiratory Rate 30 H 04/10/17 08:25 Blood Pressure 83/43 04/10/17 08:25 O2 Sat by Pulse Oximetry 82 L 04/10/17 08:25 Pain Scale Pain Intensity 0 - Physical Exam General Appearance: moderate distress, lethargy, cachetic Eye Exam: PERRL/EOMI ENT Exam: normal ENT inspection, No pharyngeal erythema, No tonsillar exudate Neck Exam: normal inspection, non-tender, supple, full range of motion, No meningismus Respiratory Exam: respiratory distress, accessory muscle use, crackles/rales Cardiovascular/Chest Exam: normal heart sounds, regular rate/rhythm, No murmur, No edema Gastrointestinal/Abdominal Exam: soft, non tender, no distention Extremity Exam: non-tender, normal range of motion, normal inspection, normal capillary refill Neurologic Exam: alert, oriented x 3, cooperative, game tester II-XII nml as tested, normal mood/affect, sensation nml, No motor deficits Skin Exam: normal color, warm, dry, No rash SpO2: 82 Oxygen Delivery: Room Air - Course Nursing assessment & vital signs reviewed: Yes EKG Interpreted by Me: RATE (HR 86), prolonged QT interval, Non-specific ST Changes Ordered Tests: Active Orders 24 hr Category Date Time Status Slot Supervisor STAT Care 04/10/17 08:36 Active Catheter-Keene Palafox STAT Care 04/10/17 08:36 Active EKG-ER Only STAT Care 04/10/17 08:36 Active Pulse Oximetry (ED) STAT Care 04/10/17 08:36 Active Saline Lock STAT Care 04/10/17 08:36 Active CHEST 1 VIEW (PORTABLE) Stat Exams 04/10/17 08:37 Taken ABG [ARTERIAL BLOOD GASES] Stat Lab 04/10/17 08:43 Completed BLOOD CULTURE Stat Lab 04/10/17 08:35 Received CBC W DIFF Stat Lab 04/10/17 08:28 Completed CMP Stat Lab 04/10/17 08:28 Completed CULTURE,URINE Stat Lab 04/10/17 08:36 Ordered Lactic Acid Stat Lab 04/10/17 08:36 Completed PROTIME WITH INR Stat Lab 04/10/17 08:28 Completed PTT Stat Lab 04/10/17 08:28 Completed UA Stat Lab 04/10/17 08:36 Ordered Medication Summary Generic Name Dose Route Start Last Admin Trade Name Freq PRN Reason Stop Dose Admin Vancomycin HCl 1 gm in 250 mls @ 167 mls/hr 04/10/17 08:44 04/10/17 09:58 Vancomycin 1gm/ Ns 250ml IV 04/10/17 10:13 167 mls/hr STAT ONE Administration Discontinued Medications Generic Name Dose Route Start Last Admin Trade Name Freq PRN Reason Stop Dose Admin Sodium Chloride Confirm 04/10/17 08:29 Sodium Chloride 0.9% 1000 Ml Administered 04/10/17 08:30 Dose 1,000 mls @ ud .ROUTE .STK-MED ONE Piperacillin Sod/Tazobactam Sod 3.375 gm in 100 mls @ 200 mls/hr 04/10/17 08: 37 04/10/17 09:57 Zosyn 3.375gm/100 Ml D5w IV 04/10/17 09:06 200 mls/hr STAT STA Administration Sodium Chloride 1,000 mls @ 999 mls/hr 04/10/17 08:38 04/10/17 09:44 Sodium Chloride 0.9% 1000 Ml IV 04/10/17 09:38 999 mls/hr .Q1H1M STA Administration Sodium Chloride Confirm 04/10/17 09:52 Sodium Chloride 0.9% 1000 Ml Administered 04/10/17 09:53 Dose 1,000 mls @ ud .ROUTE .STK-MED ONE Piperacillin Sod/Tazobactam Sod Confirm 04/10/17 09:52 Zosyn 3.375gm/100 Ml D5w Administered 04/10/17 09:53 Dose 3.375 gm in 100 mls @ ud IV .STK-MED ONE Vancomycin HCl Confirm 04/10/17 09:52 Vancomycin 1gm/ Ns 250ml Administered 04/10/17 09:53 Dose 250 mls @ ud IV .STK-MED ONE Ondansetron HCl 4 mg 04/10/17 08:38 04/10/17 09:57 Zofran 4 Mg/2 Ml Vial IV 04/10/17 08:39 4 mg STAT ONE Administration Ondansetron HCl Confirm 04/10/17 09:52 Zofran 4 Mg/2 Ml Vial Administered 04/10/17 09:53 Dose 4 mg .ROUTE .STK-MED ONE Potassium Chloride 40 meq 04/10/17 09:33 Klor Con 10 Meq PO 04/10/17 09:34 STAT ONE Lab/Rad Data: Laboratory Result Diagrams 04/10/17 08:28 04/10/17 08:28 Laboratory Results 04/10/17 04/10/17 04/10/17 Range/Units 08:43 08:36 08:28 WBC (4.0-10.5) K/mm3 RBC (4.1-5.6) M/mm3 Hgb (12.5-18.0) gm/dl Hct (42-50) % MCV (78-100) fl MCH (26-32) pg MCHC (32-36) g/dl RDW (11.5-14.0) % Plt Count (150-450) K/mm3 MPV (6-9.5) fl Gran % (36.0-66.0) % Lymphocytes % (24.0-44.0) % Monocytes % (0.0-12.0) % Eosinophils % (0.00-5.0) % Basophils % (0.0-0.4) % Basophils # (0-0.4) INR 1.26 (0.8-3.0) APTT 31.0 (24.1-36.1) SECONDS Puncture Site LEFT BRACHIAL pCO2 37 (35-45) mmHg pO2 51 L (75-100) mmHg Base Excess 2.5 H (-2.0-2.0) O2 Saturation 88.0 L (94-100) g/dF ABG pH 7.46 H (7.35-7.45) ABG HCO3 26.3 (22-28) ABG O2 Sat (Measured) 90.9 L (95-100) % Boom Test NOT APPLICABLE A-a Gradient 616 a/A Ratio 0.08 Hemoglobin 12.0 Carboxyhemoglobin 2.0 (0.0-6.9) % THgb Methemoglobin 1.1 L (1.4-1.5) % Temperature 37.0 C POC O2 Flow Rate 100 % Sodium (136-145) mEq/L Potassium 2.9 L* (3.5-5.1) mEq/L Chloride (98-107) mEq/L Carbon Dioxide (21-32) mEq/L Anion Gap (5-15) MEQ/L BUN (9-20) mg/dL Creatinine (0.55-1.30) mg/dl Estimated GFR ML/MIN Glucose (70-110) MG/DL Lactic Acid 1.9 (0.4-2.0) Calcium (8.5-10.1) mg/dL Total Bilirubin (0.2-1.0) mg/dL AST (15-37) U/L ALT (12-78) U/L Alkaline Phosphatase (46-116) U/L Serum Total Protein (6.4-8.2) gm/dL Albumin (3.4-5.0) g/dL 04/10/17 04/10/17 Range/Units 08:28 08:28 WBC 18.5 H (4.0-10.5) K/mm3 RBC 3.98 L (4.1-5.6) M/mm3 Hgb 12.7 (12.5-18.0) gm/dl Hct 40.9 L (42-50) % MCV 102.8 H (78-100) fl MCH 31.9 (26-32) pg MCHC 31.1 L (32-36) g/dl RDW 14.5 H (11.5-14.0) % Plt Count 236 (150-450) K/mm3 MPV 12.3 H (6-9.5) fl Gran % 89.4 H (36.0-66.0) % Lymphocytes % 5.6 L (24.0-44.0) % Monocytes % 4.9 (0.0-12.0) % Eosinophils % 0.0 (0.00-5.0) % Basophils % 0.1 (0.0-0.4) % Basophils # 0.01 (0-0.4) INR (0.8-3.0) APTT (24.1-36.1) SECONDS Puncture Site pCO2 (35-45) mmHg pO2 (75-100) mmHg Base Excess (-2.0-2.0) O2 Saturation (94-100) g/dF ABG pH (7.35-7.45) ABG HCO3 (22-28) ABG O2 Sat (Measured) (95-100) % Boom Test A-a Gradient a/A Ratio Hemoglobin Carboxyhemoglobin (0.0-6.9) % THgb Methemoglobin (1.4-1.5) % Temperature C POC O2 Flow Rate % Sodium 163 H* (136-145) mEq/L Potassium 3.1 L (3.5-5.1) mEq/L Chloride 122 H (98-107) mEq/L Carbon Dioxide 26.6 (21-32) mEq/L Anion Gap 17.9 H (5-15) MEQ/L BUN 52 H (9-20) mg/dL Creatinine 1.94 H (0.55-1.30) mg/dl Estimated GFR 35 ML/MIN Glucose 103 (70-110) MG/DL Lactic Acid (0.4-2.0) Calcium 9.4 (8.5-10.1) mg/dL Total Bilirubin 0.50 (0.2-1.0) mg/dL AST 16 (15-37) U/L ALT 6 L (12-78) U/L Alkaline Phosphatase 137 H (46-116) U/L Serum Total Protein 7.4 (6.4-8.2) gm/dL Albumin 2.3 L (3.4-5.0) g/dL - Progress Progress: improved Progress Note: 04/10/17 10:01 The CXR shows a small infiltrate on the left side, but clinically, patient has rhonchi on the right side consistent with aspiration pneumonia. Pt has a white count of 18,500 with a left shift. Pt has a Na of 163 and was initially started on NS fluid bolus and will now be on maintenance fluids. Pt has an elevated BUN/ Cr as well. Pt was started on vancomycin and zosyn for suspected sepsis. Pt has been admitted to Dr Winston for sepsis and aspiration pneumonia. - Departure Time of Disposition: 10:04 Departure Disposition: In-patient Admission Clinical Impression: Aspiration pneumonia Qualifiers: Aspiration pneumonia type: unspecified Laterality: right Lung location: unspecified part of lung Qualified Code(s): J69.0 - Pneumonitis due to inhalation of food and vomit Sepsis Qualifiers: Sepsis type: sepsis due to unspecified organism Qualified Code(s): A41.9 - Sepsis, unspecified organism Condition: Serious Critical Care Time: Yes Critical Care Time(excluding separately billable procedures): 75-104 minutes Referrals: KAYLENE NASCIMENTO [Primary Care Provider] -
[2017-04-10] MEDS ORDERED: Vancomycin 1GM/ Ns 250ML*** 1 GM/250 ML IVPB IV ONE (08:44)
[2017-04-10 08:46] LABS: BASOPHIL % 0.1 % (0.0-0.4); Granulocytes % 89.4 % (36.0-66.0); Lymphocytes % 5.6 % (24.0-44.0); Mean Cell Volume 102.8 fl (78-100); Mean Corpuscular Hemoglobin 31.9 pg (26-32); Mean Platelet Volume 12.3 fl (6-9.5); Monocytes % 4.9 % (0.0-12.0); Platelet Count 236 K/mm3 (150-450); Red Blood Count 3.98 M/mm3 (4.1-5.6); Red Cell Distribution Width 14.5 % (11.5-14.0); White Blood Count 18.5 K/mm3 (4.0-10.5)
[2017-04-10 08:52] LABS: A-aADO2 616; ARTERIAL BLD GAS O2 SATURATION 90.9 % (95-100); ARTERIAL BLOOD GAS BASE EXCESS 2.5 (-2.0-2.0); ARTERIAL BLOOD GAS FIO2 100 %; ARTERIAL BLOOD GAS PO2 51 mmHg (75-100); ARTERIAL BLOOD GAS pH 7.46 (7.35-7.45)
[2017-04-10 08:54] LABS: INR 1.26 (0.8-3.0); PROTIME 14.1 SECONDS (8.83-12.87)
[2017-04-10 09:01] LABS: ALBUMIN 2.3 g/dL (3.4-5.0); ANION GAP 17.9 MEQ/L (5-15); BILIRUBIN,TOTAL 0.5 mg/dL (0.2-1.0); Carbon Dioxide 26.6 mEq/L (21-32); Potassium 3.1 mEq/L (3.5-5.1); Total Protein 7.4 gm/dL (6.4-8.2)
[2017-04-10] MEDS ORDERED: Klor Con 10 MEQ PO ONE (09:33)
[2017-04-10] MEDS ORDERED: Zofran 4 MG/2 ML VIAL ONE (09:52)
[2017-04-10] MEDS ORDERED: Vancomycin 1GM/ Ns 250ML*** 250 ML IV ONE (09:52)
[2017-04-10] MEDS ORDERED: Zosyn 3.375GM/100 Ml D5W 3.375 GM/100 ML IVPB IV ONE (09:52)
[2017-04-10] MEDS ORDERED: Zofran 4 MG/2 ML VIAL IV PRN (10:04)
[2017-04-10] MEDS ORDERED: PROVENTIL 2.5 MG/3 ML NEB IH PRN (10:04)
[2017-04-10] MEDS ORDERED: POTASSIUM CHLORIDE 20 mEq IN WATER 100ML 20 MEQ/100 ML BAG IV ONE (10:08)
[2017-04-10] MEDS ORDERED: Sodium Chloride 0.9% 500 ML 500 ML IV ONE (10:14)
[2017-04-10] MEDS ORDERED: POTASSIUM CHLORIDE 20 mEq IN WATER 100ML 100 ML IV ONE (10:14)
[2017-04-10] MEDS ORDERED: Sodium Chloride 0.9% 1000 ML 1,000 ML IV SCH ×2 (10:15→11:00)
[2017-04-10 10:38] LABS: Bilirubin NEGATIVE (NEGATIVE); Blood 250 Ery/ul (0-5); Collection Type CATH; Glucose NEGATIVE (NEGATIVE); Leukocyte Esterase 2+ (NEGATIVE)
[2017-04-10 10:39] LABS: COMPLETE URINE MICROSCOPIC? YES
[2017-04-10 10:44] LABS: Bacteria MODERATE /HPF (NEGATIVE); Epithelial Cells RARE /HPF (FEW)
[2017-04-10] MEDS ORDERED: Zosyn 3.375GM/100 Ml D5W 3.375 GM/100 ML IVPB IV SCH (12:00)
--- NOTE | 2017-04-10 12:06 | XRAY ---
Indication: Fever/sepsis. Comparison: March 11, 2017. Portable chest better inflated today with diminished left base infiltrate/atelectasis. Remaining lungs clear. Heart is not enlarged for AP portable technique. No new cardiopulmonary abnormalities.
[2017-04-10] MEDS ORDERED: PHARMACY DOSING REQUEST MC ONE (14:49)
[2017-04-10] MEDS ORDERED: PHARMACY DOSING REQUIRED: VANCOMYCIN IV ONE (14:50)
--- NOTE | 2017-04-10 16:20 | PCM.HP ---
History of Present Illness - Chief Complaint Chief Complaint: Aspiration Pnuemonie, Sepsis History of Present Illness: is a 86 year old male with Parkinson's and dementia, pt of Dr. Moss from [facility] who was brought to ER this morning after staff noted he had fever and mottling of the extremities. Family wanted him brought to ER. He has been unresponsive since admission and apparently had not been eating well for the past 3 days. His daughter is currently at bedside. She said on Tuesday (1 week ago) they couldn't wake him, but 2 d later he was conversant. At the [facility] he was thought to have aspirated. He has been on thickened liquids. - Review of Systems Constitutional: Fever Respiratory: Cough Genitourinary Symptoms: Other (dark urine on admission) Neurological: Other (dementia) All Other Systems: Unable due to dementia Medications & Allergies Home Medications: Home Medication List Bisacodyl 5 mg [Dulcolax 5 mg] 10 mg PO HSPRN PRN 06/25/16 [History Confirmed 04/10/17] Clonidine HCl Tts-1 Patch [Catapres-TTS 1 PATCH] 0.1 mg TOP WEEKLY [History Confirmed 04/10/17] Mag Hydrox/Al Hydrox/Simeth [Mylanta Maximum Strength Liq] 2 ml PO Q4HPRN PRN [History Confirmed 04/10/17] Magnesium Hydroxide 30 ml [Milk of Magnesia 30 ml] 30 ml PO DAILY PRN PRN 06/25/16 [History Confirmed 04/10/17] Acetaminophen [Tylenol] 650 mg PO Q4H PRN PRN #30 tablet 11/30/16 [Rx Confirmed 04/10/17] Carbidopa/Levodopa [Carbidopa-Levodopa 25-250 Tab] 1 each PO BID 03/08/17 [ History Confirmed 04/10/17] Escitalopram Oxalate 5 mg PO DAILY 03/08/17 [History Confirmed 04/10/17] Ranitidine HCl 150 mg PO HS 03/08/17 [History Confirmed 04/10/17] Sennosides 17.2 mg PO BID 03/08/17 [History Confirmed 04/10/17] Acetaminophen 650 mg [Feverall 650 mg] 1 supp CO Q4H PRN 04/10/17 [ History Confirmed 04/10/17] Metoprolol Tartrate 50 mg [Lopressor 50 MG] 50 mg PO BID 04/10/17 [ History Confirmed 04/10/17] Allergies/Adverse Reactions: Allergies Allergy/AdvReac Type Severity Reaction Status Date / Time Penicillins Allergy Verified 12/06/16 17:29 ampicillin AdvReac Mild Vomiting Verified 12/06/16 17:29 - Past Medical History Past Medical History: Yes Neurological History: Alzheimer's Disease, Dementia, Stroke, Other ENT History: Cataracts Cardiac History: Arrhythmia, High Cholesterol, Hypertension Respiratory History: COPD, Pneumonia Endocrine Medical History: No Pertinent History Musculoskelatal History: Arthritis, Fractures GI Medical History: GERD History: Other Pyscho-Social History: Depression Male Reproductive Disorders: Prostate Cancer, Prostate Problems Comment: Parkinsons, BPH, malignant melanoma of skin, gait and mobility abnormalities (stiffening), dysphagia - Past Surgical History Past Surgical History: Yes Neuro Surgical History: No Pertinent History Cardiac History: No Pertinent History Respiratory Surgery: No Pertinent History GI Surgical History: No Pertinent History Genitourinary Surgical Hx: No Pertinent History Musculskeletal Surgical Hx: Orthopedic Surgery Male Surgical History: No Pertinent History Other Surgical History: back surgery, knee surgery - Social History Smoking Status: Smoker, status unknown Exposure to second hand smoke: No Alcohol: None Drug Use: none - Physical Exam Vital Signs: Vital Signs - 24 hr Temp Pulse Pulse Resp BP Pulse Ox 04/10/17 15:52 88 18 97 04/10/17 14:25 92 L 04/10/17 12:00 97.2 F 85 17 92/57 93 L 04/10/17 11:52 97.7 F 84 21 93/68 99 04/10/17 10:36 83 23 89 L 04/10/17 10:04 82 L 04/10/17 10:03 84 24 102/50 04/10/17 09:15 26 H 83/43 04/10/17 08:36 89 L 04/10/17 08:25 107 H 86 30 H 83/43 82 L Oxygen-Last 24 hours O2 Percentage 100% Oxygen Flowrate (L/min)-RT 15 Oxygen Flowrate (L/min)-RT 15 General Appearance: other (does not respond to voice or touch. Some mild withdrawing to cold.) Ears, Nose, Throat Exam: other (mouth is open throughout exam) Respiratory Exam: diminished breath sounds, No crackles/rales, No rhonchi, No wheezing Cardiovascular Exam: regular rate/rhythm, normal heart sounds, No murmur Gastrointestinal/Abdomen Exam: soft, guarding (possibly in response to examiner' s cold hands), other (hypoactive bowel sounds), No distention Extremity Exam: No pedal edema, No swelling Skin Exam: normal color, warm, dry Results - Other Procedures and Tests Respiratory Therapy 04/10/17 14:23 Oxygen OXYMIZER-LPM 10% 04/10/17 15:52 Respiratory Nebulizer UD Assessment/Plan (1) Sepsis Current Visit: Yes Status: Acute Qualifiers: Sepsis type: sepsis due to unspecified organism Qualified Code(s): A41.9 - Sepsis, unspecified organism Assessment & Plan: Lactate wnl by the time the pt left the ER. His initial BP in the 80s. Has been in the 120s, but after I examined him it he was hypotensive again. I discussed with daughter that he is seriously ill, may not recover from this illness. RN discussed with her earlier today that pt may even today. When he reached the ICU he was having some apneic episodes with hypoxia, but has had improved oxygen saturation since then. Pt on Merrem and IV fluids. He is SCO and I did tell respiratory not to do the repeat ABG ordered for in the morning. He does have some venous blood draws planned and I mentioned to the daughter that we can discontinue anything uncomfortable whenever she wishes. (2) Aspiration pneumonia Current Visit: Yes Status: Acute Qualifiers: Aspiration pneumonia type: unspecified Laterality: right Lung location: unspecified part of lung Qualified Code(s): J69.0 - Pneumonitis due to inhalation of food and vomit Code(s): J69.0 - PNEUMONITIS DUE TO INHALATION OF FOOD AND VOMIT (3) Dehydration Current Visit: No Status: Acute Code(s): E86.0 - DEHYDRATION (4) Hypernatremia Current Visit: No Status: Acute Code(s): E87.0 - HYPEROSMOLALITY AND HYPERNATREMIA (5) Dementia Current Visit: No Status: Chronic Qualifiers: Dementia type: Parkinson's disease Code(s): F03.90 - UNSPECIFIED DEMENTIA WITHOUT BEHAVIORAL DISTURBANCE (6) Parkinson disease Current Visit: No Status: Chronic Code(s): G20 - PARKINSON'S DISEASE
[2017-04-10] MEDS: MERREM 500MG 500 MG in Sodium Chloride 100ML MINI-BAG PLUS 100 ML IV SCH (16:23)
[2017-04-10 21:34] LABS: ANION GAP 13.5 MEQ/L (5-15); Carbon Dioxide 28.4 mEq/L (21-32); Potassium 3.6 mEq/L (3.5-5.1)
[2017-04-10] MEDS ORDERED: Sodium Chloride 0.9% 250 ML 250 ML IV SCH (21:45)
[2017-04-10] MEDS: Dextrose 5%/Water IV Soln. 1000 ML 1,000 ML IV SCH (22:30)
[2017-04-11] MEDS: MERREM 500MG 500 MG in Sodium Chloride 100ML MINI-BAG PLUS 100 ML IV SCH ×2 (04:25→17:09)
[2017-04-11 05:50] LABS: Mean Cell Volume 106.8 fl (78-100); Mean Platelet Volume 11.9 fl (6-9.5); Platelet Count 180 K/mm3 (150-450); Red Blood Count 3.24 M/mm3 (4.1-5.6); Red Cell Distribution Width 14.8 % (11.5-14.0); White Blood Count 17.7 K/mm3 (4.0-10.5)
[2017-04-11 05:57] LABS: Mean Corpuscular Hemoglobin 31.4 pg (26-32)
[2017-04-11 06:12] LABS: ALBUMIN 1.8 g/dL (3.4-5.0); ALKALINE PHOSPHATASE 112 U/L (46-116); ANION GAP 12.7 MEQ/L (5-15); CHLORIDE 125 mEq/L (98-107); Carbon Dioxide 26.9 mEq/L (21-32); Glucose 165 MG/DL (70-110); SGOT/AST 19 U/L (15-37); Total Protein 6.2 gm/dL (6.4-8.2)
[2017-04-11 06:36] LABS: BLOOD UREA NITROGEN 46 mg/dL (9-20)
[2017-04-11 06:41] LABS: SGPT/ALT < 6 U/L (12-78); SODIUM 162 mEq/L (136-145)
[2017-04-11 07:19] LABS: BAND 16 % (0.0-2.0); Basophil 1 % (0.0-1.0); Total Cells Counted 100
[2017-04-11 07:21] LABS: Platelet Estimate NORMAL (NORMAL); Toxic Granulation 1+
[2017-04-11] MEDS ORDERED: Lactated Ringers 1,000 ML IV ONE (07:56)
[2017-04-11] MEDS ORDERED: POTASSIUM CHLORIDE 20 mEq IN WATER 100ML 20 MEQ/100 ML BAG IV ONE (08:00)
--- NOTE | 2017-04-11 08:01 | PCM.NOTE ---
Date and Time: 04/11/17 0758 Subjective Assessment: continues to sleep moves all extremities decreased output overnight by gavin no other new updates his daughter is at the bedside and all questions answered. Objective Exam General Appearance: cachetic, other (breathing wtih mouth open dry mucous membranes moving all extremities spontaneously.) Neurologic Exam: No alert Skin Exam: warm, dry Respiratory Exam: normal breath sounds Cardiovascular Exam: regular rate/rhythm, No murmur Gastrointestinal/Abdomen Exam: soft, normal bowel sounds Extremity Exam: No calf tenderness OBJECTIVE DATA Vital Signs: Vital Signs - 24 hr Temp Pulse Pulse Resp BP Pulse Ox 04/11/17 06:59 76 16 95 04/11/17 04:00 97.4 F 79 16 112/65 96 04/11/17 00:01 80 04/11/17 00:00 97.8 F 75 17 108/63 98 04/10/17 20:00 97.3 F 85 21 111/65 94 L 04/10/17 16:00 97.7 F 78 19 73/50 93 L 04/10/17 15:52 88 18 97 04/10/17 14:25 92 L 04/10/17 12:00 97.2 F 85 17 92/57 93 L 04/10/17 11:52 97.7 F 84 21 93/68 99 04/10/17 10:36 83 23 89 L 04/10/17 10:04 82 L 04/10/17 10:03 84 24 102/50 04/10/17 09:15 26 H 83/43 04/10/17 08:36 89 L 04/10/17 08:25 107 H 86 30 H 83/43 82 L Oxygen-Last 24 hours O2 Percentage 100% Oxygen Flowrate (L/min)-RT 7 Oxygen Flowrate (L/min)-RT 7 Oxygen Flowrate (L/min)-RT 7 Oxygen Flowrate (L/min)-RT 7 Oxygen Flowrate (L/min)-RT 15 Oxygen Flowrate (L/min)-RT 15 Pain Assessment - Last Documented Pain Scale Used Scott Briseno Intake and Output: Intake & Output 04/08/17 04/09/17 04/10/17 04/11/17 12:59 12:59 11:59 11:59 Intake Total 1677 Output Total 1450 Balance 227 Weight Lab Results: Lab Results-Last 24 Hours 04/10/17 04/10/17 04/11/17 Range/Units 16:27 20:57 05:14 WBC 17.7 H (4.0-10.5) K/mm3 RBC 3.24 L (4.1-5.6) M/mm3 Hgb 10.2 L (12.5-18.0) gm/dl Hct 34.6 L (42-50) % MCV 106.8 H (78-100) fl MCH 31.4 (26-32) pg MCHC 29.5 L (32-36) g/dl RDW 14.8 H (11.5-14.0) % Plt Count 180 (150-450) K/mm3 MPV 11.9 H (6-9.5) fl Segmented Neutrophils 74 H (36.-66.) % Band Neutrophils 16 H (0.0-2.0) % Lymphocytes (Manual) 6 L (24-44) % Monocytes (Manual) 3 (0.0-12.0) % Basophils (Manual) 1 (0.0-1.0) % Toxic Granulation 1+ Platelet Estimate NORMAL (NORMAL) Sodium 164 H* (136-145) mEq/L Potassium 3.6 (3.5-5.1) mEq/L Chloride 126 H (98-107) mEq/L Carbon Dioxide 28.4 (21-32) mEq/L Anion Gap 13.5 (5-15) MEQ/L BUN 49 H (9-20) mg/dL Creatinine 2.09 H (0.55-1.30) mg/dl Estimated GFR 32 ML/MIN Glucose 129 H (70-110) MG/DL Calcium 8.7 (8.5-10.1) mg/dL Total Bilirubin (0.2-1.0) mg/dL AST (15-37) U/L ALT (12-78) U/L Alkaline Phosphatase (46-116) U/L Serum Total Protein (6.4-8.2) gm/dL Albumin (3.4-5.0) g/dL Prealbumin (18.0-35.7) mg/dL Influenza Type A Ag NEGATIVE (NEGATIVE) Influenza Type B Ag NEGATIVE (NEGATIVE) RSV (PCR) NEGATIVE (Negative) 04/11/17 Range/Units 05:14 WBC (4.0-10.5) K/mm3 RBC (4.1-5.6) M/mm3 Hgb (12.5-18.0) gm/dl Hct (42-50) % MCV (78-100) fl MCH (26-32) pg MCHC (32-36) g/dl RDW (11.5-14.0) % Plt Count (150-450) K/mm3 MPV (6-9.5) fl Segmented Neutrophils (36.-66.) % Band Neutrophils (0.0-2.0) % Lymphocytes (Manual) (24-44) % Monocytes (Manual) (0.0-12.0) % Basophils (Manual) (0.0-1.0) % Toxic Granulation Platelet Estimate (NORMAL) Sodium 162 H* (136-145) mEq/L Potassium 3.0 L* (3.5-5.1) mEq/L Chloride 125 H (98-107) mEq/L Carbon Dioxide 26.9 (21-32) mEq/L Anion Gap 12.7 (5-15) MEQ/L BUN 46 H (9-20) mg/dL Creatinine 1.95 H (0.55-1.30) mg/dl Estimated GFR 35 ML/MIN Glucose 165 H (70-110) MG/DL Calcium 8.9 (8.5-10.1) mg/dL Total Bilirubin 0.40 (0.2-1.0) mg/dL AST 19 (15-37) U/L ALT < 6 L (12-78) U/L Alkaline Phosphatase 112 (46-116) U/L Serum Total Protein 6.2 L (6.4-8.2) gm/dL Albumin 1.8 L (3.4-5.0) g/dL Prealbumin 7.3 L (18.0-35.7) mg/dL Influenza Type A Ag (NEGATIVE) Influenza Type B Ag (NEGATIVE) RSV (PCR) (Negative) Multi-Disciplinary Progress Notes: Multi-Disciplinary Progress Notes 04/10/17 15:10 Pharmacy Note by Satya Nguyen ANTIBIOTICS CONSULT: DC'D ZOSYN DUE TO LISTED PENICILLIN/AMPICILLIN ALLERGY.... 1 DOSE GIVEN IN ed PER DR AVILA STARTED MERROPENEM AND VANCOMYCIN CR CL = 20 L/MIN SR CR = 1.94 86 YO MERREM 500 MG IV Q12H.... VANCOMYCIN 1000 MG Q48H NEXT DOSE DUE Tuesday. [place]... LEANDRA Initialized on 04/10/17 15:10 - END OF NOTE Assessment/Plan (1) Aspiration pneumonia Current Visit: Yes Status: Acute Qualifiers: Aspiration pneumonia type: unspecified Laterality: right Lung location: unspecified part of lung Qualified Code(s): J69.0 - Pneumonitis due to inhalation of food and vomit Assessment & Plan: will continue the antibiotics and treat the hypernatremia and dehydration additional 1L LR bolus for dehydration and increase rate of the D5W will transfer to [facility] surg we discussed option of comfort care only with the daughter she wants to continue with the current plan to treat the infection and rehydration without artificial nutrition. Code(s): J69.0 - PNEUMONITIS DUE TO INHALATION OF FOOD AND VOMIT (2) Sepsis Current Visit: Yes Status: Acute Qualifiers: Sepsis type: sepsis due to unspecified organism Qualified Code(s): A41.9 - Sepsis, unspecified organism (3) Dehydration Current Visit: No Status: Acute Code(s): E86.0 - DEHYDRATION (4) Parkinson disease Current Visit: No Status: Chronic Code(s): G20 - PARKINSON'S DISEASE (5) Dementia Current Visit: No Status: Chronic Qualifiers: Dementia type: Parkinson's disease Code(s): F03.90 - UNSPECIFIED DEMENTIA WITHOUT BEHAVIORAL DISTURBANCE (6) Dysphagia Current Visit: No Status: Chronic Code(s): R13.10 - DYSPHAGIA, UNSPECIFIED (7) COPD (chronic obstructive pulmonary disease) Current Visit: No Status: Chronic (8) Hx of prostatic malignancy Current Visit: No Status: Chronic Code(s): Z85.46 - PERSONAL HISTORY OF MALIGNANT NEOPLASM OF PROSTATE (9) Hypernatremia Current Visit: No Status: Acute Code(s): E87.0 - HYPEROSMOLALITY AND HYPERNATREMIA
[2017-04-11] MEDS ORDERED: THIAMINE 200 MG/2 ML IV ONE (08:10)
[2017-04-11] MEDS ORDERED: FEVERALL 650 MG PR PRN (08:21)
[2017-04-11] MEDS ORDERED: TYLENOL 325 MG PO PRN (08:21)
[2017-04-11] MEDS ORDERED: DULCOLAX 5 MG PO PRN (08:21)
[2017-04-11] MEDS: Dextrose 5%/Water IV Soln. 1000 ML 1,000 ML IV SCH ×2 (09:48→20:42)
[2017-04-11] MEDS: THERAGRAN MULTIVITAMIN PO SCH (10:21)
[2017-04-11] MEDS: Sinemet 25/250 MG PO SCH ×2 (10:21→20:44)
[2017-04-11] MEDS: ENOXAPARIN SODIUM SQ SCH (12:12)
[2017-04-12] MEDS: MERREM 500MG 500 MG in Sodium Chloride 100ML MINI-BAG PLUS 100 ML IV SCH ×2 (03:35→15:22)
[2017-04-12 05:52] LABS: Mean Cell Volume 103.6 fl (78-100); Mean Corpuscular Hemoglobin 31.8 pg (26-32); Platelet Count 193 K/mm3 (150-450); Red Blood Count 3.33 M/mm3 (4.1-5.6); Red Cell Distribution Width 14.5 % (11.5-14.0)
[2017-04-12 05:55] LABS: ANION GAP 10.8 MEQ/L (5-15); Carbon Dioxide 27.2 mEq/L (21-32)
[2017-04-12] MEDS: Dextrose 5%/Water IV Soln. 1000 ML 1,000 ML IV SCH ×2 (06:08→19:46)
--- NOTE | 2017-04-12 08:10 | PCM.NOTE ---
Date and Time: 04/12/17 0800 Subjective Assessment: more restless but not really awke pulling at things trying to sit up did not try to eat no verbal responses. lots of secretions and required suctioning Objective Exam General Appearance: other (fidgeting picking at things moving all extremities pulling mask off eyes closed), No alert Skin Exam: warm, dry Ears, Nose, Throat Exam: dry mucous membranes Neck Exam: normal inspection, non-tender, supple Respiratory Exam: crackles/rales, rhonchi Cardiovascular Exam: regular rate/rhythm, normal heart sounds Gastrointestinal/Abdomen Exam: soft, normal bowel sounds, No tenderness, No distention OBJECTIVE DATA Vital Signs: Vital Signs - 24 hr Temp Pulse Resp BP Pulse Ox 04/12/17 07:00 97.5 F 99 H 20 133/67 87 L 04/12/17 03:38 98.5 F 88 17 140/64 98 04/12/17 00:28 98.8 F 90 20 139/59 04/12/17 00:00 20 04/11/17 20:21 122 H 20 93 L 04/11/17 20:00 98.4 F 93 H 19 131/59 93 L 04/11/17 16:00 97.7 F 85 20 161/62 88 L 04/11/17 10:25 97 Oxygen-Last 24 hours O2 Percentage 100% Oxygen Flowrate (L/min)-RT 11 Oxygen Flowrate (L/min)-RT 11 Oxygen Flowrate (L/min)-RT 8 Pain Assessment - Last Documented Pain Scale Used FLACC Intake and Output: Intake & Output 04/09/17 04/10/17 04/11/17 04/12/17 12:59 11:59 11:59 11:59 Intake Total 1677 2216 Output Total 1450 300 Balance 227 1916 Weight Lab Results: Lab Results-Last 24 Hours 04/11/17 04/12/17 04/12/17 Range/Units 12:45 05:39 05:39 WBC 19.0 H (4.0-10.5) K/mm3 RBC 3.33 L (4.1-5.6) M/mm3 Hgb 10.6 L (12.5-18.0) gm/dl Hct 34.5 L (42-50) % MCV 103.6 H (78-100) fl MCH 31.8 (26-32) pg MCHC 30.7 L (32-36) g/dl RDW 14.5 H (11.5-14.0) % Plt Count 193 (150-450) K/mm3 MPV 12.0 H (6-9.5) fl Sodium 152 H* (136-145) mEq/L Potassium 3.2 L 3.0 L* (3.5-5.1) mEq/L Chloride 117 H (98-107) mEq/L Carbon Dioxide 27.2 (21-32) mEq/L Anion Gap 10.8 (5-15) MEQ/L BUN 33 H (9-20) mg/dL Creatinine 1.49 H (0.55-1.30) mg/dl Estimated GFR 47 ML/MIN Glucose 142 H (70-110) MG/DL Calcium 8.8 (8.5-10.1) mg/dL Assessment/Plan (1) Aspiration pneumonia Current Visit: Yes Status: Acute Qualifiers: Aspiration pneumonia type: unspecified Laterality: right Lung location: unspecified part of lung Qualified Code(s): J69.0 - Pneumonitis due to inhalation of food and vomit Assessment & Plan: having periods of desaturation on oxymask continue on vanc and meropenem wbc up very poor prognosis the hypernatremia improved appropriately at 10 mEq in 24 hours continue the D5W repeat in am Code(s): J69.0 - PNEUMONITIS DUE TO INHALATION OF FOOD AND VOMIT (2) Sepsis Current Visit: Yes Status: Acute Qualifiers: Sepsis type: sepsis due to unspecified organism Qualified Code(s): A41.9 - Sepsis, unspecified organism (3) Dehydration Current Visit: Yes Status: Acute Code(s): E86.0 - DEHYDRATION (4) Parkinson disease Current Visit: Yes Status: Chronic Code(s): G20 - PARKINSON'S DISEASE (5) Dementia Current Visit: Yes Status: Chronic Qualifiers: Dementia type: Parkinson's disease Code(s): F03.90 - UNSPECIFIED DEMENTIA WITHOUT BEHAVIORAL DISTURBANCE (6) Dysphagia Current Visit: Yes Status: Chronic Code(s): R13.10 - DYSPHAGIA, UNSPECIFIED (7) COPD (chronic obstructive pulmonary disease) Current Visit: Yes Status: Chronic (8) Hx of prostatic malignancy Current Visit: Yes Status: Chronic Code(s): Z85.46 - PERSONAL HISTORY OF MALIGNANT NEOPLASM OF PROSTATE (9) Hypernatremia Current Visit: Yes Status: Acute Code(s): E87.0 - HYPEROSMOLALITY AND HYPERNATREMIA
[2017-04-12] MEDS ORDERED: Dulcolax 10 MG SUPP PR PRN (08:11)
[2017-04-12] MEDS: ENOXAPARIN SODIUM SQ SCH (09:52)
[2017-04-12] MEDS: POTASSIUM CHLORIDE 20 mEq IN WATER 100ML 20 MEQ/100 ML BAG IV SCH ×2 (09:52→10:47)
[2017-04-12] MEDS: THERAGRAN MULTIVITAMIN PO SCH (09:58)
[2017-04-12] MEDS: Sinemet 25/250 MG PO SCH ×2 (09:58→22:55)
[2017-04-12] MEDS: VANCOCIN 1 GM VIAL*** 1 GM in Sodium Chloride 0.9% 250 ML 250 ML IV SCH (10:01)
[2017-04-13] MEDS: MERREM 500MG 500 MG in Sodium Chloride 100ML MINI-BAG PLUS 100 ML IV SCH ×2 (03:51→16:20)
[2017-04-13] MEDS: Dextrose 5%/Water IV Soln. 1000 ML 1,000 ML IV SCH ×3 (04:40→21:45)
[2017-04-13 06:36] LABS: Mean Cell Volume 103.7 fl (78-100); Mean Platelet Volume 12.4 fl (6-9.5); Platelet Count 183 K/mm3 (150-450); Red Blood Count 3.24 M/mm3 (4.1-5.6); Red Cell Distribution Width 14.2 % (11.5-14.0); White Blood Count 15.3 K/mm3 (4.0-10.5)
[2017-04-13 06:52] LABS: Mean Corpuscular Hemoglobin 31.7 pg (26-32)
[2017-04-13 06:53] LABS: ALBUMIN 1.5 g/dL (3.4-5.0); ALKALINE PHOSPHATASE 171 U/L (46-116); ANION GAP 10.6 MEQ/L (5-15); BLOOD UREA NITROGEN 21 mg/dL (9-20); CHLORIDE 118 mEq/L (98-107); Glucose 125 MG/DL (70-110); Potassium 3.5 mEq/L (3.5-5.1); SGOT/AST 41 U/L (15-37); SGPT/ALT 11 U/L (12-78); Total Protein 5.7 gm/dL (6.4-8.2)
[2017-04-13 07:03] LABS: SODIUM 153 mEq/L (136-145)
--- NOTE | 2017-04-13 07:38 | PCM.NOTE ---
Date and Time: 04/13/1736 Subjective Assessment: patient continues to be fidgeting at times but otherwise about the same oxygenation is doing better vital signs doing well urine output is improving Objective Exam General Appearance: no apparent distress, cachetic Neurologic Exam: No alert, No oriented x 3 Skin Exam: warm, dry, pale Respiratory Exam: lungs clear, No respiratory distress Cardiovascular Exam: regular rate/rhythm, normal heart sounds Gastrointestinal/Abdomen Exam: soft, normal bowel sounds Extremity Exam: normal inspection OBJECTIVE DATA Vital Signs: Vital Signs - 24 hr Temp Pulse Resp BP Pulse Ox 04/13/17 07:28 98.2 F 91 H 20 141/67 94 L 04/13/17 04:00 98.4 F 81 18 119/65 94 L 04/12/17 23:48 98.8 F 83 20 119/73 94 L 04/12/17 19:56 98.7 F 92 H 18 112/69 93 L 04/12/17 19:14 92 H 18 93 L 04/12/17 16:00 98.1 F 92 H 20 122/72 90 L 04/12/17 12:00 18 04/12/17 11:24 98.1 F 91 H 20 126/70 90 L 04/12/17 08:06 99 H 20 94 L 04/12/17 08:00 20 Pain Assessment - Last Documented Pain Scale Used FLACC Intake and Output: Intake & Output 04/10/17 04/11/17 04/12/17 04/13/17 11:59 11:59 11:59 11:59 Intake Total 1677 2216 4234 Output Total 6108 891 0755 Balance 227 1916 3034 Weight Lab Results: Lab Results-Last 24 Hours 04/12/17 04/12/17 04/13/17 Range/Units 16:21 21:09 05:10 WBC 15.3 H (4.0-10.5) K/mm3 RBC 3.24 L (4.1-5.6) M/mm3 Hgb 10.3 L (12.5-18.0) gm/dl Hct 33.6 L (42-50) % MCV 103.7 H (78-100) fl MCH 31.7 (26-32) pg MCHC 30.7 L (32-36) g/dl RDW 14.2 H (11.5-14.0) % Plt Count 183 (150-450) K/mm3 MPV 12.4 H (6-9.5) fl Sodium (136-145) mEq/L Potassium 4.3 (3.5-5.1) mEq/L Chloride (98-107) mEq/L Carbon Dioxide (21-32) mEq/L Anion Gap (5-15) MEQ/L BUN (9-20) mg/dL Creatinine (0.55-1.30) mg/dl Estimated GFR ML/MIN Glucose (70-110) MG/DL Calcium (8.5-10.1) mg/dL Total Bilirubin (0.2-1.0) mg/dL AST (15-37) U/L ALT (12-78) U/L Alkaline Phosphatase (46-116) U/L Serum Total Protein (6.4-8.2) gm/dL Albumin (3.4-5.0) g/dL Stl C. diff Tox B Gene NEGATIVE (NEGATIVE) C.difficile [id number]-[id number] PRESUMPTIVE NEGATIVE (NEGATIVE) 04/13/17 Range/Units 05:10 WBC (4.0-10.5) K/mm3 RBC (4.1-5.6) M/mm3 Hgb (12.5-18.0) gm/dl Hct (42-50) % MCV (78-100) fl MCH (26-32) pg MCHC (32-36) g/dl RDW (11.5-14.0) % Plt Count (150-450) K/mm3 MPV (6-9.5) fl Sodium 153 H* (136-145) mEq/L Potassium 3.5 (3.5-5.1) mEq/L Chloride 118 H (98-107) mEq/L Carbon Dioxide 28.0 (21-32) mEq/L Anion Gap 10.6 (5-15) MEQ/L BUN 21 H (9-20) mg/dL Creatinine 1.20 (0.55-1.30) mg/dl Estimated GFR > 60 ML/MIN Glucose 125 H (70-110) MG/DL Calcium 8.8 (8.5-10.1) mg/dL Total Bilirubin 0.40 (0.2-1.0) mg/dL AST 41 H (15-37) U/L ALT 11 L (12-78) U/L Alkaline Phosphatase 171 H (46-116) U/L Serum Total Protein 5.7 L (6.4-8.2) gm/dL Albumin 1.5 L (3.4-5.0) g/dL Stl C. diff Tox B Gene (NEGATIVE) C.difficile 027-NAP1-B1 (NEGATIVE) Assessment/Plan (1) Aspiration pneumonia Current Visit: Yes Status: Acute Qualifiers: Aspiration pneumonia type: unspecified Laterality: right Lung location: unspecified part of lung Qualified Code(s): J69.0 - Pneumonitis due to inhalation of food and vomit Assessment & Plan: working with speech he is on D5W still at 120 mL/h for his hypernatremia he improved 10 mEq in 24 horus but over the last 24 hours has not improved continue with the D5W increase to 150 mL/h for the critical hypernatremia Code(s): J69.0 - PNEUMONITIS DUE TO INHALATION OF FOOD AND VOMIT (2) Sepsis Current Visit: Yes Status: Acute Qualifiers: Sepsis type: sepsis due to unspecified organism Qualified Code(s): A41.9 - Sepsis, unspecified organism (3) Dehydration Current Visit: Yes Status: Acute Code(s): E86.0 - DEHYDRATION (4) Parkinson disease Current Visit: Yes Status: Chronic Code(s): G20 - PARKINSON'S DISEASE (5) Dementia Current Visit: Yes Status: Chronic Qualifiers: Dementia type: Parkinson's disease Code(s): F03.90 - UNSPECIFIED DEMENTIA WITHOUT BEHAVIORAL DISTURBANCE (6) Dysphagia Current Visit: Yes Status: Chronic Code(s): R13.10 - DYSPHAGIA, UNSPECIFIED (7) COPD (chronic obstructive pulmonary disease) Current Visit: Yes Status: Chronic (8) Hx of prostatic malignancy Current Visit: Yes Status: Chronic Code(s): Z85.46 - PERSONAL HISTORY OF MALIGNANT NEOPLASM OF PROSTATE (9) Hypernatremia Current Visit: Yes Status: Acute Code(s): E87.0 - HYPEROSMOLALITY AND HYPERNATREMIA
[2017-04-13] MEDS: ENOXAPARIN SODIUM SQ SCH (08:51)
[2017-04-13] MEDS: Sinemet 25/250 MG PO SCH ×2 (08:58→20:59)
[2017-04-13] MEDS: THERAGRAN MULTIVITAMIN PO SCH (08:59)
[2017-04-14] MEDS: MERREM 500MG 500 MG in Sodium Chloride 100ML MINI-BAG PLUS 100 ML IV SCH ×2 (05:26→15:05)
[2017-04-14 05:54] LABS: Mean Cell Volume 100.9 fl (78-100); Mean Corpuscular Hemoglobin 31.4 pg (26-32); Mean Platelet Volume 12.1 fl (6-9.5); Platelet Count 209 K/mm3 (150-450); Red Blood Count 3.18 M/mm3 (4.1-5.6); Red Cell Distribution Width 13.8 % (11.5-14.0); White Blood Count 10.3 K/mm3 (4.0-10.5)
[2017-04-14 06:18] LABS: ANION GAP 9.5 MEQ/L (5-15); BLOOD UREA NITROGEN 14 mg/dL (9-20); CHLORIDE 115 mEq/L (98-107); Carbon Dioxide 28.2 mEq/L (21-32); Glucose 90 MG/DL (70-110)
[2017-04-14 06:28] LABS: SODIUM 150 mEq/L (136-145)
[2017-04-14 06:29] LABS: Potassium 2.9 mEq/L (3.5-5.1)
[2017-04-14] MEDS: POTASSIUM CHLORIDE 20 mEq IN WATER 100ML 20 MEQ/100 ML BAG IV SCH ×2 (07:44→09:56)
--- NOTE | 2017-04-14 08:02 | PCM.NOTE ---
Date and Time: 04/14/17 0750 Subjective Assessment: more fidgeting but not waking up much daughter continues to stay at bedside and hopeful to have him be able to eat again we discussed progressive parkinsonism and dementia and his overall poor prognosis and likely in the near term and she understands but wants to try to treat his current infection and dehydration to see if he can get back to being able to go for car rides and eating some Objective Exam General Appearance: no apparent distress, alert Neurologic Exam: No oriented x 3 Skin Exam: normal color, warm, dry Eye Exam: PERRL, EOMI, eyes nml inspection Ears, Nose, Throat Exam: dry mucous membranes Neck Exam: normal inspection, non-tender, supple, full range of motion Respiratory Exam: normal breath sounds, lungs clear, No respiratory distress Cardiovascular Exam: regular rate/rhythm, normal heart sounds Gastrointestinal/Abdomen Exam: soft, No tenderness, No mass Extremity Exam: normal inspection, normal range of motion Back Exam: normal inspection, normal range of motion, No CVA tenderness, No vertebral tenderness Male Genitalia Exam: deferred Rectal Exam: deferred OBJECTIVE DATA Vital Signs: Vital Signs - 24 hr Temp Pulse Resp BP Pulse Ox 04/14/17 07:48 98 04/14/17 07:33 97.4 F 81 18 134/63 94 L 04/14/17 07:15 73 18 97 04/14/17 04:00 97.5 F 89 19 127/75 86 L 04/14/17 01:43 96 H 86 L 04/14/17 00:00 99.5 F 101 H 24 135/64 04/13/17 20:00 97.9 F 91 H 24 149/88 90 L 04/13/17 16:00 98.4 F 77 18 170/72 95 04/13/17 12:00 97.7 F 86 20 140/62 93 L 04/13/17 08:00 20 Oxygen-Last 24 hours O2 Percentage 4 Liters = 36% O2 Percentage 5 Liters = 40% O2 Percentage 4 Liters = 36% O2 Percentage 2 Liters = 28% Pain Assessment - Last Documented Pain Scale Used [facility] Intake and Output: Intake & Output 04/11/17 04/12/17 04/13/17 04/14/17 11:59 11:59 11:59 11:59 Intake Total 3378 8716 2179 2005 Output Total 2115 979 3695 1850 Balance 227 2106 3034 156 Weight 54.431 kg Lab Results: Lab Results-Last 24 Hours 04/14/17 04/14/17 Range/Units 05:20 05:20 WBC 10.3 (4.0-10.5) K/mm3 RBC 3.18 L (4.1-5.6) M/mm3 Hgb 10.0 L (12.5-18.0) gm/dl Hct 32.1 L (42-50) % MCV 100.9 H (78-100) fl MCH 31.4 (26-32) pg MCHC 31.2 L (32-36) g/dl RDW 13.8 (11.5-14.0) % Plt Count 209 (150-450) K/mm3 MPV 12.1 H (6-9.5) fl Sodium 150 H* (136-145) mEq/L Potassium 2.9 L* (3.5-5.1) mEq/L Chloride 115 H (98-107) mEq/L Carbon Dioxide 28.2 (21-32) mEq/L Anion Gap 9.5 (5-15) MEQ/L BUN 14 (9-20) mg/dL Creatinine 1.06 (0.55-1.30) mg/dl Estimated GFR > 60 ML/MIN Glucose 90 (70-110) MG/DL Calcium 8.9 (8.5-10.1) mg/dL Multi-Disciplinary Progress Notes: Multi-Disciplinary Progress Notes 04/13/17 11:36 Respiratory Note by Selwyn Coronel PT WAS 92% ON 8LPM. PT HAD SLIPPED O2 MASK ON HIS HEAD PRIOR TO BE WALKING IN, I PLACED MASK BACK ON AND SATS QUICKLY CAME UP TO 92%. Initialized on 04/13/17 11:36 - END OF NOTE Assessment/Plan (1) Aspiration pneumonia Current Visit: Yes Status: Acute Qualifiers: Aspiration pneumonia type: unspecified Laterality: right Lung location: unspecified part of lung Qualified Code(s): J69.0 - Pneumonitis due to inhalation of food and vomit Assessment & Plan: he still has the severe hypernatremia despite being fluid resusictated and on d5w since admission initially had good results down from 160's to 150 it is down from 154 yesterday to 150 this am monitor output will increase rate of D5 and repeat this afternoon with chronic nature of the hyernatremia lowering it back to the goal of 140 prior to tomorrow am would be dangerous for cerebral edema and causing and thus he will need to stay another day for this Transporting him at this time is against his daughter's wishes who wants to stay with him and also would be harmful to his frail situation as well. Code(s): J69.0 - PNEUMONITIS DUE TO INHALATION OF FOOD AND VOMIT (2) Sepsis Current Visit: Yes Status: Resolved Qualifiers: Sepsis type: sepsis due to unspecified organism Qualified Code(s): A41.9 - Sepsis, unspecified organism (3) Dehydration Current Visit: Yes Status: Acute Code(s): E86.0 - DEHYDRATION (4) Parkinson disease Current Visit: Yes Status: Chronic Code(s): G20 - PARKINSON'S DISEASE (5) Dementia Current Visit: Yes Status: Chronic Qualifiers: Dementia type: Parkinson's disease Code(s): F03.90 - UNSPECIFIED DEMENTIA WITHOUT BEHAVIORAL DISTURBANCE (6) Dysphagia Current Visit: Yes Status: Chronic Code(s): R13.10 - DYSPHAGIA, UNSPECIFIED (7) COPD (chronic obstructive pulmonary disease) Current Visit: Yes Status: Chronic (8) Hx of prostatic malignancy Current Visit: Yes Status: Chronic Code(s): Z85.46 - PERSONAL HISTORY OF MALIGNANT NEOPLASM OF PROSTATE (9) Hypernatremia Current Visit: Yes Status: Acute Code(s): E87.0 - HYPEROSMOLALITY AND HYPERNATREMIA
[2017-04-14] MEDS: VANCOCIN 1 GM VIAL*** 1 GM in Sodium Chloride 0.9% 250 ML 250 ML IV SCH (09:02)
[2017-04-14] MEDS: ENOXAPARIN SODIUM SQ SCH (09:09)
[2017-04-14] MEDS: THERAGRAN MULTIVITAMIN PO SCH (09:12)
[2017-04-14] MEDS: Sinemet 25/250 MG PO SCH ×2 (09:13→22:26)
[2017-04-14] MEDS: Dextrose 5%/Water IV Soln. 1000 ML 1,000 ML IV SCH ×2 (13:48→19:31)
[2017-04-14 15:06] LABS: ANION GAP 9.2 MEQ/L (5-15); BLOOD UREA NITROGEN 12 mg/dL (9-20); CHLORIDE 114 mEq/L (98-107); Carbon Dioxide 27.8 mEq/L (21-32); Glucose 141 MG/DL (70-110); Potassium 3.6 mEq/L (3.5-5.1); SODIUM 147 mEq/L (136-145)
[2017-04-15] MEDS: Dextrose 5%/Water IV Soln. 1000 ML 1,000 ML IV SCH (01:03)
[2017-04-15] MEDS: MERREM 500MG 500 MG in Sodium Chloride 100ML MINI-BAG PLUS 100 ML IV SCH (03:08)
[2017-04-15 05:58] LABS: ANION GAP 9.6 MEQ/L (5-15); BLOOD UREA NITROGEN 9 mg/dL (9-20); CHLORIDE 112 mEq/L (98-107); Carbon Dioxide 29.3 mEq/L (21-32); Glucose 123 MG/DL (70-110); SODIUM 148 mEq/L (136-145)
[2017-04-15] MEDS: POTASSIUM CHLORIDE 20 mEq IN WATER 100ML 20 MEQ/100 ML BAG IV SCH ×2 (07:50→09:59)
[2017-04-15 07:59] VITALS: BP 179/84
--- NOTE | 2017-04-15 08:27 | PCM.DCORD ---
- Discharge Discharge Date: 04/15/17 Disposition: DC TO [facility] Condition: Serious Prescriptions: New Morphine Sulfate [Roxanol] 0.5 ml PO Q1H PRN #30 ml PRN Reason: Pain Continue Magnesium Hydroxide 30 ml [Milk of Magnesia 30 ml] 30 ml PO DAILY PRN PRN PRN Reason: Constipation Bisacodyl 5 mg [Dulcolax 5 mg] 10 mg PO HSPRN PRN PRN Reason: Constipation Clonidine HCl Tts-1 Patch [Catapres-TTS 1 PATCH] 0.1 mg TOP WEEKLY Mag Hydrox/Al Hydrox/Simeth [Mylanta Maximum Strength Liq] 2 ml PO Q4HPRN PRN PRN Reason: Indigestion Acetaminophen [Tylenol] 650 mg PO Q4H PRN PRN #30 tablet PRN Reason: Pain Ranitidine HCl 150 mg PO HS Carbidopa/Levodopa [Carbidopa-Levodopa 25-250 Tab] 1 each PO BID Sennosides 17.2 mg PO BID Acetaminophen 650 mg [Feverall 650 mg] 1 supp TN Q4H PRN PRN Reason: Fever Discontinued Escitalopram Oxalate 5 mg PO DAILY Metoprolol Tartrate 50 mg [Lopressor 50 MG] 50 mg PO BID Follow up with: KAYLENE NASCIMENTO [Primary Care Provider] -
[2017-04-15] MEDS: ENOXAPARIN SODIUM SQ SCH (09:59)
[2017-04-15] MEDS: THERAGRAN MULTIVITAMIN PO SCH (10:00)
[2017-04-15] MEDS: Sinemet 25/250 MG PO SCH (10:00)
[2017-04-15 12:15] VITALS: PULSE 103; O2SAT 92
--- NOTE | 2017-04-15 20:49 | PCM.DS ---
Discharge Summary Date of Admission: 04/10/17 11:00 Date of Discharge: 04/15/17 Admitting Physician: KAYLENE NASCIMENTO Primary Care Provider: KAYLENE NASCIMENTO Allergies Allergies Penicillins Allergy (Verified 12/06/16 17:29) ampicillin Adverse Reaction (Mild, Verified 12/06/16 17:29) Vomiting Hospital Summary - Hospital Course Hospital Course: Mr. 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 He has not been eating or drinking well or taking his medications consistently due to not able to swallow them spits them out. He has had continued weight loss. He was improved briefly a few weeks after admission and hydration and treatment of his hypernatremia. He was placed on Colon free water protocol at [facility] and works with speech to try to increase his free water intake but has been unsuccessful. He had an event at the facility and was felt to have aspirated resulting in acute respiratory failure and sepsis with luekocytosis and fever and at request of his daughter was sent to the ED where he was treated for health care associated pneumonia and sepsis. He had acute kidney injury that improved with LR boluses and improved urine output and severe hypernatremia that was somewhat refractory despite getting the D5W rate up to 200 mL/h over the last 24 hours of his admission. He was clinically better hydrated. Speech attempted to work with him but was unsuccessful due to his mental status. his K remained low and was replaced. He has chronic protein calorie malnutrition secondary to his dysphagia from his worsening parkinson dementia. After clinical improvement in his respiratory failure and his treatment of hcap pneumonia with vanc and meropenem due to his pcn allergy with resolution of fevers stabilization of urine output and vital signs he was still unable to cognitively get to a level to be able to swallow effectively. Discussion was had with the daughter and poa again as it has been in the past about the prognosis of his progressive and severe dementia and the role of feeding tube and the complications that can occur if used in this situation with the dementia and she agreed that this was not her desire to have him get a feeding tube. We discussed that with his lack of cognitive improvement and his continued functional decline hospice consult would be appropriate and she agreed. We discussed that if he continues to not maintain po intake that further resuscitation with iv hydration would only prolong his suffering likely and will go with hospice for palliative therapy on discharge back to [facility] today. - Vitals & Intake/Output Vital Signs: Vital Signs Temperature 97.9 F 04/15/17 07:58 Pulse Rate 103 H 04/15/17 12:00 Respiratory Rate 25 H 04/15/17 12:00 Blood Pressure 179/84 04/15/17 07:58 O2 Sat by Pulse Oximetry 92 L 04/15/17 12:00 Oxygen-Last Documented O2 Percentage 4 Liters = 36% Intake & Output: Intake & Output 04/13/17 04/14/17 04/15/17 04/16/17 11:59 11:59 11:59 11:59 Intake Total 4234 2005 393 Output Total 1200 1850 2525 Balance 3034 156 1414 Weight 54.431 kg - Lab Result Diagrams: 04/14/17 05:20 04/15/17 13:23 Lab Results-Last 24 Hrs: Lab Results-Last 24 Hours 04/15/17 04/15/17 Range/Units 05:20 13:23 Sodium 148 H (136-145) mEq/L Potassium 3.0 L* 3.8 (3.5-5.1) mEq/L Chloride 112 H (98-107) mEq/L Carbon Dioxide 29.3 (21-32) mEq/L Anion Gap 9.6 (5-15) MEQ/L BUN 9 (9-20) mg/dL Creatinine 1.01 (0.55-1.30) mg/dl Estimated GFR > 60 ML/MIN Glucose 123 H (70-110) MG/DL Calcium 8.2 L (8.5-10.1) mg/dL - Procedures and Test Procedures and Tests throughout Hospitalization: Therapy Orders & Screens 04/10/17 14:23 Oxygen OXYMIZER-LPM 10% Comment: Diagnosis: Aspiration [place], Sepsis 04/10/17 15:52 Respiratory Nebulizer UD Comment: Diagnosis: Aspiration [place], Sepsis 04/12/17 09:34 Speech Therapy Eval & Treat [ST Eval & Treat ( Order)] .as ordered Comment: Physician Instructions: Reason For Exam: dysphagia Evaluate: Yes Treat: Yes Reason for Eval: aspiration pnemonia, dysphagia Diagnosis: Aspiration [place], Sepsis Discharge Exam General Appearance: mild distress, cachetic Neurologic Exam: No alert, No oriented x 3 Skin Exam: warm, dry Ears, Nose, Throat Exam: moist mucous membranes Neck Exam: normal inspection, non-tender, supple Respiratory Exam: normal breath sounds, crackles/rales Cardiovascular Exam: regular rate/rhythm Gastrointestinal/Abdomen Exam: soft, normal bowel sounds, No tenderness Extremity Exam: normal inspection, No pedal edema Final Diagnosis/Problem List - Final Discharge Diagnosis/Problem (1) Aspiration pneumonia Status: Acute (2) Sepsis Status: Resolved (3) Dehydration Status: Acute (4) Parkinson disease Status: Chronic (5) Dementia Status: Chronic (6) Dysphagia Status: Chronic (7) COPD (chronic obstructive pulmonary disease) Status: Chronic (8) Hx of prostatic malignancy Status: Chronic (9) Hypernatremia Status: Acute (10) Acute respiratory failure Status: Acute (11) Acute kidney failure Status: Resolved (12) Anemia Status: Acute (13) Hypokalemia Status: Acute (14) Severe protein-calorie malnutrition Status: Acute - Discharge Discharge Date: 04/15/17 Disposition: [place] TO [facility] Condition: Poor Prescriptions: New Morphine Sulfate [Roxanol] 0.5 ml PO Q1H PRN #30 ml PRN Reason: Pain Continue Magnesium Hydroxide 30 ml [Milk of Magnesia 30 ml] 30 ml PO DAILY PRN PRN PRN Reason: Constipation Bisacodyl 5 mg [Dulcolax 5 mg] 10 mg PO HSPRN PRN PRN Reason: Constipation Clonidine HCl Tts-1 Patch [Catapres-TTS 1 PATCH] 0.1 mg TOP WEEKLY Mag Hydrox/Al Hydrox/Simeth [Mylanta Maximum Strength Liq] 2 ml PO Q4HPRN PRN PRN Reason: Indigestion Acetaminophen [Tylenol] 650 mg PO Q4H PRN PRN #30 tablet PRN Reason: Pain Ranitidine HCl 150 mg PO HS Carbidopa/Levodopa [Carbidopa-Levodopa 25-250 Tab] 1 each PO BID Sennosides 17.2 mg PO BID Acetaminophen 650 mg [Feverall 650 mg] 1 supp VA Q4H PRN PRN Reason: Fever Discontinued Escitalopram Oxalate 5 mg PO DAILY Metoprolol Tartrate 50 mg [Lopressor 50 MG] 50 mg PO BID Additional Instructions: [facility] ORDERS SEE ATTACHED MED LIST AND RX FOR CURRENT MED ORDERS COMFORT MEASURES TURN Q2H ORAL CARE Q2H [facility] SUPPORT Follow up with: KAYLENE NASCIMENTO [Primary Care Provider] -
== END 2017-04-15 14:30 | DRG 177 ==
LOC: ED 08:23 → ICU 11:00 → MED SURG 04-11 11:40
PROVIDERS: ADMIT Family Medicine; ATTEND Family Medicine
DX: J69.0 Pneumonitis due to inhalation of food and vomit (principal); A41.9 Sepsis, unspecified organism; J96.00 Acute respiratory failure, unspecified whether with hypoxia or hypercapnia; E43 Unspecified severe protein-calorie malnutrition; E87.0 Hyperosmolality and hypernatremia; N17.9 Acute kidney failure, unspecified; E86.0 Dehydration; G20 Parkinson's disease; F02.80 Dementia in other diseases classified elsewhere, unspecified severity, without behavioral disturbance, psychotic disturbance, mood disturbance, and anxiety; R13.10 Dysphagia, unspecified; J44.9 Chronic obstructive pulmonary disease, unspecified; I10 Essential (primary) hypertension; Z85.46 Personal history of malignant neoplasm of prostate; D64.9 Anemia, unspecified; E87.6 Hypokalemia; M19.90 Unspecified osteoarthritis, unspecified site; K21.9 Gastro-esophageal reflux disease without esophagitis; R26.9 Unspecified abnormalities of gait and mobility; N40.0 Benign prostatic hyperplasia without lower urinary tract symptoms; Z79.899 Other long term (current) drug therapy; Z86.73 Personal history of transient ischemic attack (TIA), and cerebral infarction without residual deficits
CPT/HCPCS: 36000; 36415; 36600; 51702; 71010; 80048; 80053; 81000; 82375; 82803; 83605; 84132; 84134; 85025; 85027; 85610; 85730; 87040; 87077; 87086; 87186; 87493; 87631; 93005; 93041; 94640; 94760; 94761; 96360; 96361; 96365; 96367; 99285; J1650; J2405; J2543; J3370; J3480; P9612; A9270-GY